=== PATIENT | male | born 1980 | race African-American/Black ===

== ENCOUNTER 2017-01-12 15:30 | Emergency (ER) | payer SELFPAY ==
[~2017-01-12] VITALS: Ht 177.8 cm; Wt 72.6 kg
[2017-01-12 16:24] VITALS: BP 132/90
[2017-01-12] MEDS ORDERED: POLY10DR EACHEYE (16:27)
--- NOTE | 2017-01-12 16:28 | PHYS DOC ---
Past Medical History Past Medical History: No Pertinent History Past Surgical History: No Surgical History Alcohol Use: Occasionally Drug Use: None Adult General Chief Complaint Chief Complaint: EYE PROBLEMS HPI HPI Patient is a 36 year old male that presents to the emergency department with left eye redness and drainage for 5 days. He was previously evaluated and given Zaditor without relief of symptoms. He has no complaints of blurred vision, double vision, loss of vision. He states his eye does not hurt but feels irritated. Review of Systems Review of Systems Constitutional: Denies fever or chills [] Eyes: Left eye redness with discharge, no eye pain HENT: Denies nasal congestion or sore throat [] Respiratory: Denies cough or shortness of breath [] Cardiovascular: No additional information not addressed in HPI [] GI: Denies abdominal pain, nausea, vomiting, bloody stools or diarrhea [] : Denies dysuria or hematuria [] Musculoskeletal: Denies back pain or joint pain [] Integument: Denies rash or skin lesions [] Neurologic: Denies headache, focal weakness or sensory changes [] Endocrine: Denies polyuria or polydipsia [] Allergies Allergies Allergies Coded Allergies Type Severity Reaction Last Updated Verified No Known Drug Allergies 12/26/13 No Physical Exam Physical Exam Constitutional: Well developed, well nourished, no acute distress, non-toxic appearance. [] Eyes: PERRLA, EOMI, left eye with ecchymosis, conjunctiva beefy red. Purulent discharge medial canthus. Funduscopic exam is benign. EOMs intact pupils equal round reactive to light [] Neck: Normal range of motion, no tenderness, supple, no stridor. [] EKG EKG [] Radiology/Procedures Radiology/Procedures [] Course & Med Decision Making Course & Med Decision Making Pertinent Labs and Imaging studies reviewed. (See chart for details) [] Dragon Disclaimer Dragon Disclaimer This electronic medical record was generated, in whole or in part, using a voice recognition dictation system. Departure Departure Impression: Primary Impression: Conjunctivitis Disposition: 01 HOME, SELF-CARE Condition: STABLE Referrals: NO PCP (PCP) Patient Instructions: Bacterial Conjunctivitis Scripts Polymyxin B Sulf/Trimethoprim (POLYTRIM EYE DROPS) 10 Ml Drops 1 DROP EACHEYE 4 hours while awake for 10 Days, #10 ML Prov: ROXANNE QUINONES APRN 01/12/17 ROXANNE QUINONES APRN Jan 12, 2017 16:27
== END 2017-01-12 16:32 | disposition home or self-care (01) ==
LOC: ER 15:30
DX: H10.9 Unspecified conjunctivitis (principal)
CPT/HCPCS: 99283

== ENCOUNTER 2017-06-19 12:55 | Inpatient (IN) | payer SELFPAY ==
[~2017-06-19] VITALS: Ht 177.8 cm; Wt 61.4 kg
[~2017-06-19 12:55] MED LIST: ACID1CAP PO; APIX5TAB PO; ASPI-482 PO; DOXY100T PO; FAMO-63 PO; FURO20TA3 PO; LACT1CAP6 PO; LEVO500T59 PO; LISI2.5T PO; METO25TA4 PO; POLY10DR EACHEYE; POTA10TA12 PO
[2017-06-19] MEDS ORDERED: ONDANSETRON PF 4 MG/2 ML VIAL. IV ONE (13:30)
[2017-06-19] MEDS ORDERED: 0.9 % SODIUM CHLORIDE 10 ML DISP.SYRIN. IV PRN (13:30)
[2017-06-19 13:33] LABS: BASO % 1 % (0-3); EOS % 2 % (0-3); HEMATOCRIT 36.8 % (39.0-53.0); HEMOGLOBIN 12.1 g/dL (13.0-17.5); LYMPH # 1.2 x10^3/uL (1.0-4.8); LYMPH % 37 % (24-48); MEAN CORPUSCULAR HEMOGLOBIN 31 pg (25-35); MEAN CORPUSCULAR HGB CONC 33 g/dL (31-37); MEAN CORPUSCULAR VOLUME 94 fL (79-100); MONO % 18 % (0-9); NEUT % 43 % (31-73); PLATELET COUNT 161 x10^3/uL (140-400); WHITE BLOOD COUNT 3.2 x10^3/uL (4.0-11.0)
--- NOTE | 2017-06-19 13:40 | PHYS DOC ---
Past Medical History Past Medical History: CHF, CVA, Pneumonia, Other Additional Past Medical Histor: CARDIAC ARYTHMIA (WEARING LIFE VEST), CARDIOMYOPATHY Past Surgical History: Other Additional Past Surgical Histo: L ARM lac repair Alcohol Use: None Drug Use: None Adult General Chief Complaint Chief Complaint: SHORTNESS OF BREATH [facility] HPI Patient is a pleasant 36-year-old -[place] male with a known history of congestive heart failure from dilated cardiomyopathy, he is suffered from stroke with prior expressive dysphasia with EF of 15% on last echocardiogram he presents today with abdominal pain that's progressively worse in the right upper quadrant with radiation to the midepigastrium. It is described as sharp and stabbing that began at noon yesterday it was not associate with trauma, food , recent nausea, vomiting or diarrhea. Patient denies any particular exacerbating symptoms other than breathing and and direct pressure over the abdomen. The pain is 8-10 without radiation to the back. He denies any UTI symptoms, history of kidney stone or blood in his urine. Patient denies any change in medications, denies any night sweats, fevers, weight loss or shortness of breath other than the fact that it hurts to breathe. Patient denies any use of [id number] medications treat his symptoms. Review of Systems Review of Systems Constitutional: Denies fever or chills [] Eyes: Denies change in visual acuity, redness, or eye pain [] HENT: Denies nasal congestion or sore throat [] Respiratory: Denies cough but he has had shortness of breath. Cardiovascular: No additional information not addressed in HPI [] GI: Patient has a complaint of abdominal pain with nausea but no vomiting no diarrhea no constipation.[] : Denies dysuria or hematuria [] Musculoskeletal: Denies back pain or joint pain [] Integument: Denies rash or skin lesions [] Neurologic: Denies headache, focal weakness or sensory changes patient chronically has difficulty speaking.[] Endocrine: Denies polyuria or polydipsia [] All other systems were reviewed and found to be within normal limits, except as documented in this note. Current Medications Current Medications Current Medications Medications (Trade) Dose Ordered Sig/Smiley Start Time Stop Time Status Last Admin Dose Admin Hydromorphone HCl (Dilaudid) 1 mg PRN Q15MIN PRN 06/19/17 13:30 06/20/17 13:29 06/19/17 13:43 1 MG Info (Do NOT chart on this entry -- for MONITORING) 1 each PRN DAILY PRN 06/19/17 14:00 06/21/17 13:59 Iohexol (Omnipaque 300 Mg/ml) 75 ml 1X ONCE 06/19/17 14:00 06/19/17 14:01 DC 06/19/17 14:00 75 ML Ondansetron HCl (Zofran) 4 mg 1X ONCE 06/19/17 13:30 06/19/17 13:31 DC 06/19/17 13:42 4 MG Sodium Chloride (Normal Saline Flush) 10 ml QSHIFT PRN 06/19/17 13:30 06/19/17 13:43 10 ML Allergies Allergies Allergies Coded Allergies Type Severity Reaction Last Updated Verified No Known Drug Allergies 05/12/17 No Physical Exam Physical Exam Patient is wearing his cardiac life best he is no acute distress vital signs are unremarkable at this time. Constitutional: Well developed, well nourished, no acute distress, non-toxic appearance. [] HENT: Normocephalic, atraumatic, bilateral external ears normal, oropharynx moist, no oral exudates, nose normal. [] Eyes: PERRLA, EOMI, conjunctiva normal, no discharge. [] Neck: Normal range of motion, no tenderness, supple, no stridor. [] Cardiovascular:Heart rate regular rhythm, no murmur [] Lungs & Thorax: Bilateral breath sounds clear to auscultation [] Abdomen: Patient is marked tenderness to palpation in the right upper quadrant with positive Bowie sign. His abdomen is soft no pulsatile masses, no guarding rebound or organomegaly. Skin: Warm, dry, no erythema, no rash. [] Back: No tenderness, no CVA tenderness. [] Extremities: No tenderness, no cyanosis, no clubbing, ROM intact, no edema. [] Neurologic: Alert and oriented X 3, normal motor function, normal sensory function, patient noted to have slight expressive aphasia[] Psychologic he is affect since blunted to me but this is normal baseline patient 's mood is normal[] Current Patient Data Vital Signs Vital Signs Date Time Temp Pulse Resp B/P (MAP) Pulse Ox O2 Delivery O2 Flow Rate FiO2 06/19/17 14:18 Room Air 06/19/17 13:05 98.0 98 22 132/81 (98) 100 98.0 Lab Values Laboratory Tests Test 06/19/17 13:20 White Blood Count 3.2 x10^3/uL (4.0-11.0) L Red Blood Count 3.90 x10^6/uL (4.30-5.70) L Hemoglobin 12.1 g/dL (13.0-17.5) L Hematocrit 36.8 % (39.0-53.0) L Mean Corpuscular Volume 94 fL (79-100) Mean Corpuscular Hemoglobin 31 pg (25-35) Mean Corpuscular Hemoglobin Concent 33 g/dL (31-37) Red Cell Distribution Width 14.0 % (11.5-14.5) Platelet Count 161 x10^3/uL (140-400) Neutrophils (%) (Auto) 43 % (31-73) Lymphocytes (%) (Auto) 37 % (24-48) Monocytes (%) (Auto) 18 % (0-9) H Eosinophils (%) (Auto) 2 % (0-3) Basophils (%) (Auto) 1 % (0-3) Neutrophils # (Auto) 1.4 x10^3uL (1.8-7.7) L Lymphocytes # (Auto) 1.2 x10^3/uL (1.0-4.8) Monocytes # (Auto) 0.6 x10^3/uL (0.0-1.1) Eosinophils # (Auto) 0.1 x10^3/uL (0.0-0.7) Basophils # (Auto) 0.0 x10^3/uL (0.0-0.2) Platelet Estimate Adequate (ADEQUATE) Large Platelets Few Giant Platelets Occ Sodium Level 138 mmol/L (136-145) Potassium Level 4.5 mmol/L (3.5-5.1) Chloride Level 101 mmol/L (98-107) Carbon Dioxide Level 24 mmol/L (21-32) Anion Gap 13 (6-14) Blood Urea Nitrogen 22 mg/dL (8-26) Creatinine 1.2 mg/dL (0.7-1.3) Estimated GFR (Cockcroft-Gault) 82.0 BUN/Creatinine Ratio 18 (6-20) Glucose Level 102 mg/dL (70-99) H Calcium Level 9.1 mg/dL (8.5-10.1) Total Bilirubin 1.5 mg/dL (0.2-1.0) H Aspartate Amino Transferase (AST) 78 U/L (15-37) H Alanine Aminotransferase (ALT) 50 U/L (16-63) Alkaline Phosphatase 139 U/L (46-116) H Creatine Kinase 139 U/L (39-308) Creatine Kinase MB (Mass) 1.7 ng/mL (0.0-3.6) Creatine Kinase MB Relative Index 1.2 % (0-4) Troponin I Quantitative 0.027 ng/mL (0.000-0.055) XN-Ira-U-Type Natriuretic Peptide 4393 pg/mL (0-124) H Total Protein 7.4 g/dL (6.4-8.2) Albumin 3.5 g/dL (3.4-5.0) Albumin/Globulin Ratio 0.9 (1.0-1.7) L Lipase 114 U/L (73-393) Laboratory Tests 06/19/17 13:20 Laboratory Tests 06/19/17 13:20 EKG EKG []Impression to EKG timed 1:36 PM 06/19/2017 read by me demonstrated P with every QRS(normal sinus rhythm there is significant PVCs noted there is a large left atrial enlargement lead to the P wave greater than 2 mV. Patient's. Ovral 158, QRS width is 88 which is normal, QTc is 489 which is prolonged.. There is no ST segment T-wave changes consistent with acute cord ischemia. Radiology/Procedures Radiology/Procedures [] Course & Med Decision Making Course & Med Decision Making Pertinent Labs and Imaging studies reviewed. (See chart for details) []Patient is a pleasant 36-year-old male with a history of recurrent myopathy and congestive heart for with a prior stroke and expressive aphasia who presents with shortness of breath and right upper quadrant abdominal pain. He just recent seen and admitted the hospital for congestive heart failure with the last several weeks. Patient denies any chest pain denies intention medications but the pain is worse the right upper quadrant with breathing and position. He has marked tenderness to palpation on right upper quadrant abdominal pain exam and in the epigastric region. 2:00 Work returned at this time approximate 2 PM patient's white blood cell count is normal, a CBC is unremarkable as well as a normal H&H. Platelet count is also normal at 161, trop I is normal, pending CT ab/pelvis and probnp. Chest xray is without signs of CHF or infiltrate Laboratory Tests Test 06/19/17 13:20 White Blood Count 3.2 x10^3/uL (4.0-11.0) Red Blood Count 3.90 x10^6/uL (4.30-5.70) Hemoglobin 12.1 g/dL (13.0-17.5) Hematocrit 36.8 % (39.0-53.0) Mean Corpuscular Volume 94 fL (79-100) Mean Corpuscular Hemoglobin 31 pg (25-35) Mean Corpuscular Hemoglobin Concent 33 g/dL (31-37) Red Cell Distribution Width 14.0 % (11.5-14.5) Platelet Count 161 x10^3/uL (140-400) Neutrophils (%) (Auto) 43 % (31-73) Lymphocytes (%) (Auto) 37 % (24-48) Monocytes (%) (Auto) 18 % (0-9) Eosinophils (%) (Auto) 2 % (0-3) Basophils (%) (Auto) 1 % (0-3) Neutrophils # (Auto) 1.4 x10^3uL (1.8-7.7) Lymphocytes # (Auto) 1.2 x10^3/uL (1.0-4.8) Monocytes # (Auto) 0.6 x10^3/uL (0.0-1.1) Eosinophils # (Auto) 0.1 x10^3/uL (0.0-0.7) Basophils # (Auto) 0.0 x10^3/uL (0.0-0.2) Platelet Estimate Adequate (ADEQUATE) Large Platelets Few Giant Platelets Occ Sodium Level 138 mmol/L (136-145) Chloride Level 101 mmol/L (98-107) Carbon Dioxide Level 24 mmol/L (21-32) Anion Gap 13 (6-14) Blood Urea Nitrogen 22 mg/dL (8-26) Estimated GFR (Cockcroft-Gault) 82.0 BUN/Creatinine Ratio 18 (6-20) Glucose Level 102 mg/dL (70-99) Calcium Level 9.1 mg/dL (8.5-10.1) Total Bilirubin 1.5 mg/dL (0.2-1.0) Aspartate Amino Transf (AST/SGOT) 78 U/L (15-37) Alkaline Phosphatase 139 U/L (46-116) Creatine Kinase 139 U/L (39-308) Creatine Kinase MB (Mass) 1.7 ng/mL (0.0-3.6) Creatine Kinase MB Relative Index 1.2 % (0-4) Troponin I Quantitative 0.027 ng/mL (0.000-0.055) Total Protein 7.4 g/dL (6.4-8.2) Albumin 3.5 g/dL (3.4-5.0) Albumin/Globulin Ratio 0.9 (1.0-1.7) Lipase 114 U/L (73-393) Marroquin over to oncoming physician Dr. Cheri Marroquin at approximately 3 PM. Dragon Disclaimer Dragon Disclaimer This electronic medical record was generated, in whole or in part, using a voice recognition dictation system. Departure Departure Impression: Primary Impression: CHF (congestive heart failure) Additional Impression: Abdominal pain Referrals: NO PCP (PCP) Problem Qualifiers WING HA MD Jun 19, 2017 13:40
[2017-06-19] MEDS: HYDROmorphone 2 MG/ML VIAL IV/SQ PRN ×2 (13:43→14:52)
[2017-06-19 13:46] LABS: CALCIUM 9.1 mg/dL (8.5-10.1); CREATININE 1.2 mg/dL (0.7-1.3); POTASSIUM 4.5 mmol/L (3.5-5.1)
[2017-06-19 13:54] LABS: ALBUMIN 3.5 g/dL (3.4-5.0); ALBUMIN/GLOBULIN RATIO 0.9 (1.0-1.7); TOTAL BILIRUBIN 1.5 mg/dL (0.2-1.0); TOTAL PROTEIN 7.4 g/dL (6.4-8.2)
[2017-06-19] MEDS ORDERED: CONTRAST GIVEN MC PRN (14:00)
[2017-06-19] MEDS ORDERED: IOHEXOL 300 MG/ML 100ML VIAL. IV ONE (14:00)
--- NOTE | 2017-06-19 14:13 | RAD ---
AP chest, 06/19/2017: History: Shortness of breath Comparison is made to a study from 06/15/2017. The heart is enlarged. Previously seen patchy pulmonary infiltrates have cleared. The pulmonary vascularity is better defined. There is slight blunting of the left lateral costophrenic angle compatible with a small amount of residual pleural fluid versus scarring. No new abnormality is seen. IMPRESSION: 1. Cardiomegaly. 2. Resolution of the previously seen bilateral pulmonary infiltrates which probably represented pulmonary edema. 3. Possible tiny residual left pleural effusion.
[2017-06-19 14:25] LABS: CKMB MASS 1.7 ng/mL (0.0-3.6); PLT ESTIMATE ADEQUATE (ADEQUATE)
--- NOTE | 2017-06-19 14:54 | EKG ---
[facility] [address] [place] [address] Test Date: 2017-06-19 Test Time: 13:36:27 Pat Name: JOSE ELIAS POOLE Department: Room: Gender: M Head Chef: : [id number] Requested By: WING HA Order Number: [id number] Reading MD: David Lyles MD Measurements Intervals [place] Rate: 90 P: 49 NV: 158 QRS: 67 QRSD: 88 T: 39 QT: 396 QTc: 489 Interpretive Statements SINUS RHYTHM LVH PVC Electronically Signed On 06-24-2017 14:41:00 BUSINESS PROCESS MODELER by David Lyles MD
--- NOTE | 2017-06-19 15:05 | RAD ---
Indication: Right upper quadrant and epigastric pain. Technique: Axial images and coronal and sagittal reformatted images are provided. 75 mL of intravenous Omnipaque 300 was administered without complication. Comparison is from May 06, 2017. One or more of the following individualized dose reduction techniques were utilized for this examination: 1. Automated exposure control 2. Adjustment of the mA and/or kV according to patient size 3. Use of iterative reconstruction technique Findings: There is atelectasis in the lung bases. There is no pleural effusion. Heart is upper limits of normal in size. Liver is grossly unremarkable. There is pericholecystic fluid or wall thickening. Pancreas is unremarkable. Contrast timing is arterial phase, heterogeneity of the spleen can be a normal finding on arterial imaging. There is no adrenal mass. There are areas of renal infarct bilaterally, similar distribution to is on prior. They demonstrate expected evolution. Aorta is normal caliber. There is no small bowel obstruction or mural thickening apparent. There is no ascites or free air. Free pelvic fluid is noted and nonspecific. Bladder is unremarkable. There is no pelvic adenopathy. Bony structures are intact. There are L5 pars defects with slight anterolisthesis. Impression: 1. Nonspecific gallbladder wall thickening or pericholecystic fluid. If further workup is required, consider ultrasound and hepatobiliary scintigraphy with ejection fraction. 2. Expected evolution of bilateral renal infarcts. 3. Small small amount of nonspecific pelvic ascites. 4. Borderline cardiomegaly.
[2017-06-19 15:56] LABS: BILIRUBIN,URINE NEGATIVE (NEG); GLUCOSE,URINE NEGATIVE (NEG); NITRITE,URINE NEGATIVE (NEG); PH,URINE 5.5; PROTEIN,URINE NEGATIVE (NEG-TRACE); UROBILINOGEN,URINE 0.2 mg/dL (0.2 mg/dL)
[2017-06-19 16:22] LABS: BACTERIA,URINE 0 /HPF (0-FEW); RBC,URINE 0 /HPF (0-2); SQUAMOUS EPITHELIAL CELL,UR OCC /LPF; WBC,URINE 0 /HPF (0-4)
--- NOTE | 2017-06-19 19:14 | RAD ---
Examination: Ultrasound right upper quadrant HISTORY: History of upper abdominal pain COMPARISON: None available FINDINGS: The visualized pancreas grossly appears unremarkable. The echogenicity of the liver grossly appears unremarkable. No evidence of gallstones. The gallbladder wall thickness measures 3.5 mm. Minimal amount of free fluid identified adjacent to the gallbladder. No obvious cholelithiasis identified. The right kidney measures 10.8 x 5.2 x 4.5 cm. Probably lobulation identified in the right kidney. IMPRESSION: No evidence of cholelithiasis however the gallbladder wall thickness is mildly thickened with minimal surrounding fluid about the gallbladder, nonspecific. Acalculous cholecystitis is not completely excluded. Correlate clinically. A follow-up HIDA scan may be useful. Electronically signed by: Narayan Black MD (06/19/2017 7:11 PM) [facility]
[2017-06-19] MEDS ORDERED: ONDANSETRON PF 4 MG/2 ML VIAL. IV PRN (19:45)
[2017-06-19] MEDS ORDERED: fentaNYL PF VIAL 100 MCG/2 ML VIAL IV PRN (19:45)
[2017-06-19 20:55] VITALS: BP 135/94
[2017-06-19] MEDS ORDERED: METO-239 PO (21:33)
[2017-06-19] MEDS ORDERED: ASPI-630 PO (21:37)
[2017-06-19] MEDS ORDERED: HYDROcodone/APAP 5/325MG 1 TAB TABLET PO PRN (22:30)
[2017-06-19 23:23] VITALS: BP 112/80
--- NOTE | 2017-06-19 23:24 | HP ---
ADMIT DATE: 06/19/2017 CHIEF COMPLAINT: Abdominal pain, shortness of breath. HISTORY OF PRESENT ILLNESS: The patient is a 36-year-old -[place] gentleman, well known to our service with previous admissions for dilated cardiomyopathy and stroke. He presented to the Emergency Room with mid epigastric pain as well as some shortness of breath associated with pain episodes. He describes the pain as sharp, stabbing, beginning at about noon the previous day. Although centered subxiphoid, it radiates to his right upper quadrant as well. He has shortness of breath associated with the episodes of pain. He relates that today's episode started at about 02:00 in the morning and he has had it happening in the fountain pen turner hours fairly frequently over the past few weeks, although never as severe as this morning. He denies any night sweats, fevers, chills, weight loss or any changes in his medications. PAST MEDICAL HISTORY: CAD; CHF with an EF of 20, wearing a LifeVest; history of CVA and pneumonia. FAMILY HISTORY: No heart history known. SOCIAL HISTORY: Lives with mother. Quit drinking excess alcohol with his initial diagnosis. No tobacco or drug use. ALLERGIES: No known drug allergies. MEDICATIONS: MAR reconciled with home medications. REVIEW OF SYSTEMS: Positive as per HPI. Rest of organ system review is answered negatively. PHYSICAL EXAMINATION: VITAL SIGNS: Show blood pressure of 135/94, heart rate of 108 and respiratory rate at 18. He is afebrile. GENERAL: This is a slim 36-year-old -[place] gentleman, awake, alert, in no acute distress. HEENT: Shows no scleral icterus. NECK: Supple, without any lymphadenopathy. LUNGS: Clear bilaterally. HEART: Has regular rate and rhythm. ABDOMEN: Positive bowel sounds. Tenderness to palpation along the rib margin and epigastrium. EXTREMITIES: Show no edema. SKIN: Warm, soft and dry. LABORATORY DATA: CBC with a WBC of 3.2, hemoglobin of 12.1 and platelets of 161,000. Chemistries with a BUN and creatinine of 22 and 1.2, normal electrolytes, glucose at 102. AST at 78, and he had been fluctuating anywhere from 33-120 in the past few months. Total bilirubin at 1.5, once again fluctuation from 0.7 to 2. Initial troponin is negative, although had been slightly elevated just 4 days ago. ProBNP at 4393. Urine was negative for any infectious symptoms, shows a specific gravity of greater than 1.030. IMAGING STUDIES: Chest x-ray reveals cardiomegaly and resolution of the previously seen bilateral pulmonary infiltrates, consistent with pulmonary edema. Other studies showed an ultrasound of the right kidney, which is normal. No evidence of gallstones. There is gallbladder wall thickness with minimal amount of free fluid adjacent to the gallbladder. ASSESSMENT AND PLAN: The patient is a 36-year-old -[place] gentleman with severe cardiomyopathy and ejection fraction of 15, who presents with nausea and abdominal pain. Ultrasound of the abdomen is read as no evidence of cholelithiasis; however, acalculous cholecystitis is not completely excluded. Given findings, HIDA scan will be obtained in the morning. Even if positive, given the severe cardiomyopathy, I doubt that he is a surgical candidate. We will await findings of the study. In the meantime, we will keep him on clear liquids. Continue home medications for now. KULWANT ARCE MD DR: MAGNO/nts JOB#: [id number] / [id number] ELE
[2017-06-20] MEDS: FAMOTIDINE 20 MG/2 ML VIAL IVP SCH ×3 (00:07→15:59)
[2017-06-20 03:00] VITALS: BP 112/77
[2017-06-20 05:34] LABS: BASO % 1 % (0-3); EOS % 4 % (0-3); HEMATOCRIT 36.4 % (39.0-53.0); HEMOGLOBIN 11.8 g/dL (13.0-17.5); LYMPH # 1.4 x10^3/uL (1.0-4.8); LYMPH % 40 % (24-48); MEAN CORPUSCULAR HEMOGLOBIN 31 pg (25-35); MEAN CORPUSCULAR HGB CONC 33 g/dL (31-37); MEAN CORPUSCULAR VOLUME 94 fL (79-100); MONO % 15 % (0-9); NEUT % 40 % (31-73); PLATELET COUNT 150 x10^3/uL (140-400); RED BLOOD COUNT 3.86 x10^6/uL (4.30-5.70); RED CELL DISTRIBUTION WIDTH 14.1 % (11.5-14.5); WHITE BLOOD COUNT 3.4 x10^3/uL (4.0-11.0)
[2017-06-20 06:08] LABS: CALCIUM 9.5 mg/dL (8.5-10.1); CREATININE 1.1 mg/dL (0.7-1.3); GFR 90.6; POTASSIUM 4.1 mmol/L (3.5-5.1)
[2017-06-20 06:11] LABS: ALBUMIN 3.2 g/dL (3.4-5.0); DIRECT BILIRUBIN 0.3 mg/dL (0.0-0.2); TOTAL BILIRUBIN 1.5 mg/dL (0.2-1.0); TOTAL PROTEIN 6.7 g/dL (6.4-8.2)
[2017-06-20 07:00] VITALS: BP 115/85
[2017-06-20] MEDS ORDERED: APIXABAN 5 MG TABLET. PO SCH (09:00)
[2017-06-20] MEDS: METOPROLOL SUCC 24HR ER 25 MG TAB.ER.24H. PO SCH ×2 (09:00→15:59)
[2017-06-20] MEDS ORDERED: FUROSEMIDE 20 MG TABLET PO SCH (09:00)
[2017-06-20] MEDS: ASPIRIN CHEWABLE 81 MG TABLET. PO SCH ×2 (09:00→15:57)
--- NOTE | 2017-06-20 10:58 | PDOC2 ---
ARNOLD OLIVIER FLAT CUTTER 06/20/17 1058: CONSULT Date of Consult Date of Consult DATE: 06/20/17 TIME: 10:50 Reason for Consult Reason for Consult: RUQ pain Referring Physician Referring Physician: ER Identification/Chief Complaint Chief Complaint abdominal pain Problems: Source Source: Chart review, Patient History of Present Illness Reason for Visit: Acute epigastric pain started yesterday. He has had similar symptoms in past. Denies related to eating. No nausea, vomiting, constipation, or diarrhea Significant cardiac history Past Medical History Cardiovascular: CHF, HTN Pulmonary: Pneumonia GI: GERD Past Surgical History Past Surgical History: No pertinent history Family History Family History: Other (noncontributory to current illness ) Social History Quit (2 months ago) ALCOHOL: other (frequent not daily however, few beers) Drugs: None Lives: Alone Current Problem List Problem List Problems Medical Problems: (1) Abdominal pain Status: Acute Current Medications Current Medications Current Medications Hydromorphone HCl (Dilaudid) 1 mg PRN Q15MIN PRN IV/SQ PAIN GREATER THAN 3/10 Last administered on 06/19/17 14:52; Start 06/19/17 at 13:30; Stop 06/19/17 at 22:30; Status DC Sodium Chloride (Normal Saline Flush) 10 ml QSHIFT PRN IV AFTER MEDS AND BLOOD DRAWS Last administered on 06/19/17 13:43; Start 06/19/17 at 13:30 Ondansetron HCl (Zofran) 4 mg 1X ONCE IV Last administered on 06/19/17 13:42 ; Start 06/19/17 at 13:30; Stop 06/19/17 at 13:31; Status DC Iohexol (Omnipaque 300 Mg/ml) 75 ml 1X ONCE IV Last administered on 14:00; Start 06/19/17 at 14:00; Stop 06/19/17 at 14:01; Status DC Info (Do NOT chart on this entry -- for MONITORING) 1 each PRN DAILY PRN MC SEE COMMENTS; Start 06/19/17 at 14:00; Stop 06/21/17 at 13:59 Ondansetron HCl (Zofran) 4 mg PRN Q8HRS PRN IV NAUSEA/VOMITING; Start at 19:45; Stop 06/20/17 at 19:44 Fentanyl Citrate (Fentanyl 2ml Vial) 50 mcg PRN Q1HR PRN IV PAIN; Start at 19:45; Stop 06/19/17 at 22:30; Status DC Apixaban (Eliquis) 5 mg BID PO ; Start 06/20/17 at 09:00 Aspirin (Children'S Aspirin) 81 mg DAILY PO ; Start 06/20/17 at 09:00 Furosemide (Lasix) 20 mg DAILY PO ; Start 06/20/17 at 09:00 Metoprolol Succinate (Toprol Xl) 25 mg DAILY PO ; Start 06/20/17 at 09:00 Acetaminophen/ Hydrocodone Bitart (Lortab 5/325) 1 tab PRN Q4HRS PRN PO PAIN; Start 06/19/17 at 22:30 Famotidine (Pepcid Vial) 20 mg BID92 IVP Last administered on 06/20/17t 09:09 ; Start 06/19/17 at 22:30 Active Scripts Active Furosemide 20 Mg Tablet 20 Mg PO DAILY 30 Days Polytrim Eye Drops (Polymyxin B Sulf/Trimethoprim) 10 Ml Drops 1 Drop EACHEYE 4 HOURS WHILE AWAKE 10 Days Reported Aspirin 81 Mg Tab.chew 81 Mg PO Metoprolol Succinate ( Xl ) (Metoprolol Succinate) 25 Mg Tab.er.24h 1 Tab PO DAILY Eliquis (Apixaban) 5 Mg Tablet 5 Mg PO BID Allergies Allergies: Coded Allergies: No Known Drug Allergies (Unverified , 05/12/17) ROS General: YES: Chills, No: Other (fevers) PSYCHOLOGICAL ROS: No: Anxiety, Depression Eyes: No Blurry vision, No Loss of vision HEENT: No: Heacaches, Sore Throat Hematological and Lymphatic: YES: Bleeding Problems, No: Blood Clots Respiratory: YES: Shortness of breath, No: Cough Cardiovascular: No Chest Pain, No Palpitations Gastrointestinal: Yes Other (see hpi) Genitourinary: No Dysuria, No Hematuria Musculoskeletal: No Joint Pain, No Muscle Pain Neurological: No Impaired Coord/balance, No Numbness/Tingling Skin: No Pruritus, No Rash Physical Exam General: Alert, Oriented X3, Cooperative, No acute distress HEENT: PERRLA, Mucous membr. moist/pink Lungs: Clear to auscultation, Normal air movement Heart: Regular rate, Normal S1, Normal S2, No murmurs Abdomen: Soft, Other (epigastric TTP) Extremities: No clubbing, No cyanosis Skin: No rashes, No breakdown Neuro: Normal gait, Normal speech Psych/Mental Status: Mental status NL, Mood NL MUSCULOSKELETAL: No deformity, No swelling Vitals VITALS Vital Signs Date Time Temp Pulse Resp B/P (MAP) Pulse Ox O2 Delivery O2 Flow Rate FiO2 06/20/17 07:00 97.8 94 18 115/85 (95) 94 Room Air 97.8 Labs Labs Laboratory Tests Test 06/19/17 13:20 06/19/17 15:40 06/20/17 05:15 White Blood Count 3.2 x10^3/uL (4.0-11.0) 3.4 x10^3/uL (4.0-11.0) Red Blood Count 3.90 x10^6/uL (4.30-5.70) 3.86 x10^6/uL (4.30-5.70) Hemoglobin 12.1 g/dL (13.0-17.5) 11.8 g/dL (13.0-17.5) Hematocrit 36.8 % (39.0-53.0) 36.4 % (39.0-53.0) Mean Corpuscular Volume 94 fL (79-100) 94 fL (79-100) Mean Corpuscular Hemoglobin 31 pg (25-35) 31 pg (25-35) Mean Corpuscular Hemoglobin Concent 33 g/dL (31-37) 33 g/dL (31-37) Red Cell Distribution Width 14.0 % (11.5-14.5) 14.1 % (11.5-14.5) Platelet Count 161 x10^3/uL (140-400) 150 x10^3/uL (140-400) Neutrophils (%) (Auto) 43 % (31-73) 40 % (31-73) Lymphocytes (%) (Auto) 37 % (24-48) 40 % (24-48) Monocytes (%) (Auto) 18 % (0-9) 15 % (0-9) Eosinophils (%) (Auto) 2 % (0-3) 4 % (0-3) Basophils (%) (Auto) 1 % (0-3) 1 % (0-3) Neutrophils # (Auto) 1.4 x10^3uL (1.8-7.7) 1.4 x10^3uL (1.8-7.7) Lymphocytes # (Auto) 1.2 x10^3/uL (1.0-4.8) 1.4 x10^3/uL (1.0-4.8) Monocytes # (Auto) 0.6 x10^3/uL (0.0-1.1) 0.5 x10^3/uL (0.0-1.1) Eosinophils # (Auto) 0.1 x10^3/uL (0.0-0.7) 0.1 x10^3/uL (0.0-0.7) Basophils # (Auto) 0.0 x10^3/uL (0.0-0.2) 0.0 x10^3/uL (0.0-0.2) Platelet Estimate Adequate (ADEQUATE) Large Platelets Few Giant Platelets Occ Sodium Level 138 mmol/L (136-145) 138 mmol/L (136-145) Potassium Level 4.5 mmol/L (3.5-5.1) 4.1 mmol/L (3.5-5.1) Chloride Level 101 mmol/L (98-107) 102 mmol/L (98-107) Carbon Dioxide Level 24 mmol/L (21-32) 27 mmol/L (21-32) Anion Gap 13 (6-14) 9 (6-14) Blood Urea Nitrogen 22 mg/dL (8-26) 18 mg/dL (8-26) Creatinine 1.2 mg/dL (0.7-1.3) 1.1 mg/dL (0.7-1.3) Estimated GFR (Cockcroft-Gault) 82.0 90.6 BUN/Creatinine Ratio 18 (6-20) Glucose Level 102 mg/dL (70-99) 89 mg/dL (70-99) Calcium Level 9.1 mg/dL (8.5-10.1) 9.5 mg/dL (8.5-10.1) Total Bilirubin 1.5 mg/dL (0.2-1.0) 1.5 mg/dL (0.2-1.0) Aspartate Amino Transf (AST/SGOT) 78 U/L (15-37) 35 U/L (15-37) Alanine Aminotransferase (ALT/SGPT) 50 U/L (16-63) 38 U/L (16-63) Alkaline Phosphatase 139 U/L (46-116) 120 U/L (46-116) Creatine Kinase 139 U/L (39-308) Creatine Kinase MB (Mass) 1.7 ng/mL (0.0-3.6) Creatine Kinase MB Relative Index 1.2 % (0-4) Troponin I Quantitative 0.027 ng/mL (0.000-0.055) TX-Pyy-T-Type Natriuretic Peptide 4393 pg/mL (0-124) Total Protein 7.4 g/dL (6.4-8.2) 6.7 g/dL (6.4-8.2) Albumin 3.5 g/dL (3.4-5.0) 3.2 g/dL (3.4-5.0) Albumin/Globulin Ratio 0.9 (1.0-1.7) Lipase 114 U/L (73-393) Urine Color Yellow Urine Clarity Clear Urine pH 5.5 Urine Specific [place] >=1.030 Urine Protein Negative mg/dL (NEG-TRACE) Urine Glucose (UA) Negative mg/dL (NEG) Urine Ketones (Stick) Negative mg/dL (NEG) Urine Blood Negative (NEG) Urine Nitrite Negative (NEG) Urine Bilirubin Negative (NEG) Urine Urobilinogen Dipstick 0.2 mg/dL (0.2 mg/dL) Urine Leukocyte Esterase Negative (NEG) Urine RBC 0 /HPF (0-2) Urine WBC 0 /HPF (0-4) Urine Squamous Epithelial Cells Occ /LPF Urine Bacteria 0 /HPF (0-FEW) Direct Bilirubin 0.3 mg/dL (0.0-0.2) Laboratory Tests Test 06/19/17 13:20 06/19/17 15:40 06/20/17 05:15 White Blood Count 3.2 x10^3/uL (4.0-11.0) 3.4 x10^3/uL (4.0-11.0) Red Blood Count 3.90 x10^6/uL (4.30-5.70) 3.86 x10^6/uL (4.30-5.70) Hemoglobin 12.1 g/dL (13.0-17.5) 11.8 g/dL (13.0-17.5) Hematocrit 36.8 % (39.0-53.0) 36.4 % (39.0-53.0) Mean Corpuscular Volume 94 fL (79-100) 94 fL (79-100) Mean Corpuscular Hemoglobin 31 pg (25-35) 31 pg (25-35) Mean Corpuscular Hemoglobin Concent 33 g/dL (31-37) 33 g/dL (31-37) Red Cell Distribution Width 14.0 % (11.5-14.5) 14.1 % (11.5-14.5) Platelet Count 161 x10^3/uL (140-400) 150 x10^3/uL (140-400) Neutrophils (%) (Auto) 43 % (31-73) 40 % (31-73) Lymphocytes (%) (Auto) 37 % (24-48) 40 % (24-48) Monocytes (%) (Auto) 18 % (0-9) 15 % (0-9) Eosinophils (%) (Auto) 2 % (0-3) 4 % (0-3) Basophils (%) (Auto) 1 % (0-3) 1 % (0-3) Neutrophils # (Auto) 1.4 x10^3uL (1.8-7.7) 1.4 x10^3uL (1.8-7.7) Lymphocytes # (Auto) 1.2 x10^3/uL (1.0-4.8) 1.4 x10^3/uL (1.0-4.8) Monocytes # (Auto) 0.6 x10^3/uL (0.0-1.1) 0.5 x10^3/uL (0.0-1.1) Eosinophils # (Auto) 0.1 x10^3/uL (0.0-0.7) 0.1 x10^3/uL (0.0-0.7) Basophils # (Auto) 0.0 x10^3/uL (0.0-0.2) 0.0 x10^3/uL (0.0-0.2) Platelet Estimate Adequate (ADEQUATE) Large Platelets Few Giant Platelets Occ Sodium Level 138 mmol/L (136-145) 138 mmol/L (136-145) Potassium Level 4.5 mmol/L (3.5-5.1) 4.1 mmol/L (3.5-5.1) Chloride Level 101 mmol/L (98-107) 102 mmol/L (98-107) Carbon Dioxide Level 24 mmol/L (21-32) 27 mmol/L (21-32) Anion Gap 13 (6-14) 9 (6-14) Blood Urea Nitrogen 22 mg/dL (8-26) 18 mg/dL (8-26) Creatinine 1.2 mg/dL (0.7-1.3) 1.1 mg/dL (0.7-1.3) Estimated GFR (Cockcroft-Gault) 82.0 90.6 BUN/Creatinine Ratio 18 (6-20) Glucose Level 102 mg/dL (70-99) 89 mg/dL (70-99) Calcium Level 9.1 mg/dL (8.5-10.1) 9.5 mg/dL (8.5-10.1) Total Bilirubin 1.5 mg/dL (0.2-1.0) 1.5 mg/dL (0.2-1.0) Aspartate Amino Transf (AST/SGOT) 78 U/L (15-37) 35 U/L (15-37) Alanine Aminotransferase (ALT/SGPT) 50 U/L (16-63) 38 U/L (16-63) Alkaline Phosphatase 139 U/L (46-116) 120 U/L (46-116) Creatine Kinase 139 U/L (39-308) Creatine Kinase MB (Mass) 1.7 ng/mL (0.0-3.6) Creatine Kinase MB Relative Index 1.2 % (0-4) Troponin I Quantitative 0.027 ng/mL (0.000-0.055) VH-Jhr-R-Type Natriuretic Peptide 4393 pg/mL (0-124) Total Protein 7.4 g/dL (6.4-8.2) 6.7 g/dL (6.4-8.2) Albumin 3.5 g/dL (3.4-5.0) 3.2 g/dL (3.4-5.0) Albumin/Globulin Ratio 0.9 (1.0-1.7) Lipase 114 U/L (73-393) Urine Color Yellow Urine Clarity Clear Urine pH 5.5 Urine Specific [place] >=1.030 Urine Protein Negative mg/dL (NEG-TRACE) Urine Glucose (UA) Negative mg/dL (NEG) Urine Ketones (Stick) Negative mg/dL (NEG) Urine Blood Negative (NEG) Urine Nitrite Negative (NEG) Urine Bilirubin Negative (NEG) Urine Urobilinogen Dipstick 0.2 mg/dL (0.2 mg/dL) Urine Leukocyte Esterase Negative (NEG) Urine RBC 0 /HPF (0-2) Urine WBC 0 /HPF (0-4) Urine Squamous Epithelial Cells Occ /LPF Urine Bacteria 0 /HPF (0-FEW) Direct Bilirubin 0.3 mg/dL (0.0-0.2) Assessment/Plan Assessment/Plan abdominal pain, US/CT findings of pericholecystic fluid, gb wall thickening, no stones cardiomyopathy, EF 20%, history of stroke, on eliquis, CHF HIDA today hold eliquis pending HIDA, if found to have acute cholecystitis--will need eliquis held for potential surgery XOCHITL NUGENT MD 06/20/17 1806: CONSULT Allergies Allergies: Coded Allergies: No Known Drug Allergies (Unverified , 05/12/17) Assessment/Plan Assessment/Plan Pt seen and examined. Agree with Ms. Olivier's note Pt reports pain is improved, jane PO abd soft, min TTP suspect biliary source for pain and biliary dyskinesia (EF 93 % by HIDA), but pt is prohibitive surgical candidate recommend low fat diet and EtOH cessation Thanks for consult! ARNOLD OLIVIER APRN Jun 20, 2017 10:58 XOCHITL NUGENT MD Jun 20, 2017 18:06
[2017-06-20 11:00] VITALS: BP 114/85
[2017-06-20] MEDS ORDERED: SINCALIDE 1.3 MCG in IV NORMAL SALINE 50ML 30 ML IV ONE (13:45)
[2017-06-20 15:00] VITALS: BP 112/81
--- NOTE | 2017-06-20 15:11 | PDOC ---
CARDIO Progress Notes Date and Time Date of Service 06/20/2017 Time of Evaluation 1500 Subjective Subjective: No Chest Pain, No shortness of breath, No Palpitations, No Dizziness Vitals Vitals Vital Signs Date Time Temp Pulse Resp B/P (MAP) Pulse Ox O2 Delivery O2 Flow Rate FiO2 06/20/17 11:00 98.5 83 18 114/85 (95) 96 Room Air 98.5 Weight Weight [ ] Input and Output Intake and Output Intake and Output 06/20/17 07:00 Intake Total 0 ml Output Total 25 ml Balance -25 ml Intake Oral 0 ml Output Urine Total 25 ml # Voids 2 Laboratory Labs Laboratory Tests Test 06/19/17 15:40 06/20/17 05:15 Urine Color Yellow Urine Clarity Clear Urine pH 5.5 Urine Specific [place] >=1.030 Urine Protein Negative mg/dL (NEG-TRACE) Urine Glucose (UA) Negative mg/dL (NEG) Urine Ketones (Stick) Negative mg/dL (NEG) Urine Blood Negative (NEG) Urine Nitrite Negative (NEG) Urine Bilirubin Negative (NEG) Urine Urobilinogen Dipstick 0.2 mg/dL (0.2 mg/dL) Urine Leukocyte Esterase Negative (NEG) Urine RBC 0 /HPF (0-2) Urine WBC 0 /HPF (0-4) Urine Squamous Epithelial Cells Occ /LPF Urine Bacteria 0 /HPF (0-FEW) White Blood Count 3.4 x10^3/uL (4.0-11.0) Red Blood Count 3.86 x10^6/uL (4.30-5.70) Hemoglobin 11.8 g/dL (13.0-17.5) Hematocrit 36.4 % (39.0-53.0) Mean Corpuscular Volume 94 fL (79-100) Mean Corpuscular Hemoglobin 31 pg (25-35) Mean Corpuscular Hemoglobin Concent 33 g/dL (31-37) Red Cell Distribution Width 14.1 % (11.5-14.5) Platelet Count 150 x10^3/uL (140-400) Neutrophils (%) (Auto) 40 % (31-73) Lymphocytes (%) (Auto) 40 % (24-48) Monocytes (%) (Auto) 15 % (0-9) Eosinophils (%) (Auto) 4 % (0-3) Basophils (%) (Auto) 1 % (0-3) Neutrophils # (Auto) 1.4 x10^3uL (1.8-7.7) Lymphocytes # (Auto) 1.4 x10^3/uL (1.0-4.8) Monocytes # (Auto) 0.5 x10^3/uL (0.0-1.1) Eosinophils # (Auto) 0.1 x10^3/uL (0.0-0.7) Basophils # (Auto) 0.0 x10^3/uL (0.0-0.2) Sodium Level 138 mmol/L (136-145) Potassium Level 4.1 mmol/L (3.5-5.1) Chloride Level 102 mmol/L (98-107) Carbon Dioxide Level 27 mmol/L (21-32) Anion Gap 9 (6-14) Blood Urea Nitrogen 18 mg/dL (8-26) Creatinine 1.1 mg/dL (0.7-1.3) Estimated GFR (Cockcroft-Gault) 90.6 Glucose Level 89 mg/dL (70-99) Calcium Level 9.5 mg/dL (8.5-10.1) Total Bilirubin 1.5 mg/dL (0.2-1.0) Direct Bilirubin 0.3 mg/dL (0.0-0.2) Aspartate Amino Transf (AST/SGOT) 35 U/L (15-37) Alanine Aminotransferase (ALT/SGPT) 38 U/L (16-63) Alkaline Phosphatase 120 U/L (46-116) Total Protein 6.7 g/dL (6.4-8.2) Albumin 3.2 g/dL (3.4-5.0) Physical Exam HEENT: Neck Supple W Full Motion Chest: Symmetric LUNGS: Other (faint basilar crackles) Heart: S1S2, RRR (SR) Abdomen: Soft N/T Extremities: No Edema, No Calf Tenderness Neurology: alert, oriented, follow commands Assessment Assessment This is a pleasant 36 yo who was recently discharge on 06/17/2017 and was noted at that time with CHF exacerbation which was likely due to some of his med running out particularly the metoprolol. 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 He has been on lifevest since he was initially noted with NICM. He is then readmitted for SOA and abdominal pain near the epigastric region and general surgery has been consulted. He woke up the other day with SOA but no n/v and no peripheral edema, palpitations. Positive for PND and orthopnea at home but much better so far. He did admit that he started drinking ETOH again. 1. Acute on chronic systolic/diastolic CHF: compensated 2. NICM: EF 15% NYHA2 3. Abdominal pain: possible GB/biliary disease. Discussed with PCP, no surgical plans. Pain better. 4. Recent bilateral renal infarct/embolic CVA 5. Started drinking ETOH again Recommendations 1. Continue with secondary prevention 2. Continue with optimization and lifevest 3. Will need to be placed on heparin if eliquis is needing to be held 4. Increase lasix to 40 mg daily. Start on low dose lisinopril 2.5 mg if BP trend continues to be adequate. 5. Discussed CHF symptoms, daily wt, daily home BP/HR monitoring. low sodium diet 6. Dietitian to see 7. discussed complete cessation of ETOH. 8. F/U 07/10 in the office ALIZE FOWLER APRN Jun 20, 2017 15:11
--- NOTE | 2017-06-20 15:26 | RAD ---
Hepatobiliary scan 06/20/2017 Indication: Epigastric pain x2 days Comparison study: Right upper quadrant ultrasound 06/19/2017 Discussion: Imaging over the abdomen was performed following the administration of 5.5 mCi of technetium 99 labeled Choletec. Following visualization of the gallbladder 1.3 mcg of sincalide was administered. Imaging over the abdomen was continued in the gallbladder ejection fraction was calculated. The gallbladder is visualized at approximately 20 minutes. The emptying of the gallbladder and filling of the small bowel radiotracer is noted. Some free pertechnetate is noted in the bladder. The gallbladder ejection fraction is calculated at 93% (anything greater than 35% is normal). Impression: 1. No scintigraphic evidence of cholecystitis 2. Normal gallbladder ejection fraction
--- NOTE | 2017-06-20 15:37 | PDOC ---
PROGRESS NOTES Chief Complaint Chief Complaint acute abdominal pain severe cardiomyopathy and ejection fraction of 15, history of CVA and renal infarcts, coagulopathic htn History of Present Illness History of Present Illness pain is better has been NPO US and DEVORAH viera CV consult, patient should not be off anticoagulation with recent history pain better, will try PO intake, restart eliquis, may try to DC in AM Vitals Vitals Vital Signs Date Time Temp Pulse Resp B/P (MAP) Pulse Ox O2 Delivery O2 Flow Rate FiO2 06/20/17 11:00 98.5 83 18 114/85 (95) 96 Room Air 98.5 Physical Exam General: Alert, Oriented X3, Cooperative, No acute distress Heart: Regular rate, Normal S1, Normal S2, No murmurs Lungs: Clear Abdomen: Soft, Other (epigastric TTP) Extremities: No clubbing, No cyanosis Skin: No rashes, No breakdown Labs LABS Laboratory Tests Test 06/19/17 15:40 06/20/17 05:15 Urine Color Yellow Urine Clarity Clear Urine pH 5.5 Urine Specific [place] >=1.030 Urine Protein Negative mg/dL (NEG-TRACE) Urine Glucose (UA) Negative mg/dL (NEG) Urine Ketones (Stick) Negative mg/dL (NEG) Urine Blood Negative (NEG) Urine Nitrite Negative (NEG) Urine Bilirubin Negative (NEG) Urine Urobilinogen Dipstick 0.2 mg/dL (0.2 mg/dL) Urine Leukocyte Esterase Negative (NEG) Urine RBC 0 /HPF (0-2) Urine WBC 0 /HPF (0-4) Urine Squamous Epithelial Cells Occ /LPF Urine Bacteria 0 /HPF (0-FEW) White Blood Count 3.4 x10^3/uL (4.0-11.0) Red Blood Count 3.86 x10^6/uL (4.30-5.70) Hemoglobin 11.8 g/dL (13.0-17.5) Hematocrit 36.4 % (39.0-53.0) Mean Corpuscular Volume 94 fL (79-100) Mean Corpuscular Hemoglobin 31 pg (25-35) Mean Corpuscular Hemoglobin Concent 33 g/dL (31-37) Red Cell Distribution Width 14.1 % (11.5-14.5) Platelet Count 150 x10^3/uL (140-400) Neutrophils (%) (Auto) 40 % (31-73) Lymphocytes (%) (Auto) 40 % (24-48) Monocytes (%) (Auto) 15 % (0-9) Eosinophils (%) (Auto) 4 % (0-3) Basophils (%) (Auto) 1 % (0-3) Neutrophils # (Auto) 1.4 x10^3uL (1.8-7.7) Lymphocytes # (Auto) 1.4 x10^3/uL (1.0-4.8) Monocytes # (Auto) 0.5 x10^3/uL (0.0-1.1) Eosinophils # (Auto) 0.1 x10^3/uL (0.0-0.7) Basophils # (Auto) 0.0 x10^3/uL (0.0-0.2) Sodium Level 138 mmol/L (136-145) Potassium Level 4.1 mmol/L (3.5-5.1) Chloride Level 102 mmol/L (98-107) Carbon Dioxide Level 27 mmol/L (21-32) Anion Gap 9 (6-14) Blood Urea Nitrogen 18 mg/dL (8-26) Creatinine 1.1 mg/dL (0.7-1.3) Estimated GFR (Cockcroft-Gault) 90.6 Glucose Level 89 mg/dL (70-99) Calcium Level 9.5 mg/dL (8.5-10.1) Total Bilirubin 1.5 mg/dL (0.2-1.0) Direct Bilirubin 0.3 mg/dL (0.0-0.2) Aspartate Amino Transf (AST/SGOT) 35 U/L (15-37) Alanine Aminotransferase (ALT/SGPT) 38 U/L (16-63) Alkaline Phosphatase 120 U/L (46-116) Total Protein 6.7 g/dL (6.4-8.2) Albumin 3.2 g/dL (3.4-5.0) Assessment and Plan Assessmemt and Plan Problems Medical Problems: (1) Abdominal pain Status: Acute Problems: Comment Review of Relevant I have reviewed the following items ron (where applicable) has been applied. Labs Laboratory Tests Test 06/19/17 13:20 06/19/17 15:40 06/20/17 05:15 White Blood Count 3.2 x10^3/uL (4.0-11.0) 3.4 x10^3/uL (4.0-11.0) Red Blood Count 3.90 x10^6/uL (4.30-5.70) 3.86 x10^6/uL (4.30-5.70) Hemoglobin 12.1 g/dL (13.0-17.5) 11.8 g/dL (13.0-17.5) Hematocrit 36.8 % (39.0-53.0) 36.4 % (39.0-53.0) Mean Corpuscular Volume 94 fL (79-100) 94 fL (79-100) Mean Corpuscular Hemoglobin 31 pg (25-35) 31 pg (25-35) Mean Corpuscular Hemoglobin Concent 33 g/dL (31-37) 33 g/dL (31-37) Red Cell Distribution Width 14.0 % (11.5-14.5) 14.1 % (11.5-14.5) Platelet Count 161 x10^3/uL (140-400) 150 x10^3/uL (140-400) Neutrophils (%) (Auto) 43 % (31-73) 40 % (31-73) Lymphocytes (%) (Auto) 37 % (24-48) 40 % (24-48) Monocytes (%) (Auto) 18 % (0-9) 15 % (0-9) Eosinophils (%) (Auto) 2 % (0-3) 4 % (0-3) Basophils (%) (Auto) 1 % (0-3) 1 % (0-3) Neutrophils # (Auto) 1.4 x10^3uL (1.8-7.7) 1.4 x10^3uL (1.8-7.7) Lymphocytes # (Auto) 1.2 x10^3/uL (1.0-4.8) 1.4 x10^3/uL (1.0-4.8) Monocytes # (Auto) 0.6 x10^3/uL (0.0-1.1) 0.5 x10^3/uL (0.0-1.1) Eosinophils # (Auto) 0.1 x10^3/uL (0.0-0.7) 0.1 x10^3/uL (0.0-0.7) Basophils # (Auto) 0.0 x10^3/uL (0.0-0.2) 0.0 x10^3/uL (0.0-0.2) Platelet Estimate Adequate (ADEQUATE) Large Platelets Few Giant Platelets Occ Sodium Level 138 mmol/L (136-145) 138 mmol/L (136-145) Potassium Level 4.5 mmol/L (3.5-5.1) 4.1 mmol/L (3.5-5.1) Chloride Level 101 mmol/L (98-107) 102 mmol/L (98-107) Carbon Dioxide Level 24 mmol/L (21-32) 27 mmol/L (21-32) Anion Gap 13 (6-14) 9 (6-14) Blood Urea Nitrogen 22 mg/dL (8-26) 18 mg/dL (8-26) Creatinine 1.2 mg/dL (0.7-1.3) 1.1 mg/dL (0.7-1.3) Estimated GFR (Cockcroft-Gault) 82.0 90.6 BUN/Creatinine Ratio 18 (6-20) Glucose Level 102 mg/dL (70-99) 89 mg/dL (70-99) Calcium Level 9.1 mg/dL (8.5-10.1) 9.5 mg/dL (8.5-10.1) Total Bilirubin 1.5 mg/dL (0.2-1.0) 1.5 mg/dL (0.2-1.0) Aspartate Amino Transf (AST/SGOT) 78 U/L (15-37) 35 U/L (15-37) Alanine Aminotransferase (ALT/SGPT) 50 U/L (16-63) 38 U/L (16-63) Alkaline Phosphatase 139 U/L (46-116) 120 U/L (46-116) Creatine Kinase 139 U/L (39-308) Creatine Kinase MB (Mass) 1.7 ng/mL (0.0-3.6) Creatine Kinase MB Relative Index 1.2 % (0-4) Troponin I Quantitative 0.027 ng/mL (0.000-0.055) BH-Njm-R-Type Natriuretic Peptide 4393 pg/mL (0-124) Total Protein 7.4 g/dL (6.4-8.2) 6.7 g/dL (6.4-8.2) Albumin 3.5 g/dL (3.4-5.0) 3.2 g/dL (3.4-5.0) Albumin/Globulin Ratio 0.9 (1.0-1.7) Lipase 114 U/L (73-393) Urine Color Yellow Urine Clarity Clear Urine pH 5.5 Urine Specific [place] >=1.030 Urine Protein Negative mg/dL (NEG-TRACE) Urine Glucose (UA) Negative mg/dL (NEG) Urine Ketones (Stick) Negative mg/dL (NEG) Urine Blood Negative (NEG) Urine Nitrite Negative (NEG) Urine Bilirubin Negative (NEG) Urine Urobilinogen Dipstick 0.2 mg/dL (0.2 mg/dL) Urine Leukocyte Esterase Negative (NEG) Urine RBC 0 /HPF (0-2) Urine WBC 0 /HPF (0-4) Urine Squamous Epithelial Cells Occ /LPF Urine Bacteria 0 /HPF (0-FEW) Direct Bilirubin 0.3 mg/dL (0.0-0.2) Laboratory Tests Test 06/19/17 15:40 06/20/17 05:15 Urine Color Yellow Urine Clarity Clear Urine pH 5.5 Urine Specific [place] >=1.030 Urine Protein Negative mg/dL (NEG-TRACE) Urine Glucose (UA) Negative mg/dL (NEG) Urine Ketones (Stick) Negative mg/dL (NEG) Urine Blood Negative (NEG) Urine Nitrite Negative (NEG) Urine Bilirubin Negative (NEG) Urine Urobilinogen Dipstick 0.2 mg/dL (0.2 mg/dL) Urine Leukocyte Esterase Negative (NEG) Urine RBC 0 /HPF (0-2) Urine WBC 0 /HPF (0-4) Urine Squamous Epithelial Cells Occ /LPF Urine Bacteria 0 /HPF (0-FEW) White Blood Count 3.4 x10^3/uL (4.0-11.0) Red Blood Count 3.86 x10^6/uL (4.30-5.70) Hemoglobin 11.8 g/dL (13.0-17.5) Hematocrit 36.4 % (39.0-53.0) Mean Corpuscular Volume 94 fL (79-100) Mean Corpuscular Hemoglobin 31 pg (25-35) Mean Corpuscular Hemoglobin Concent 33 g/dL (31-37) Red Cell Distribution Width 14.1 % (11.5-14.5) Platelet Count 150 x10^3/uL (140-400) Neutrophils (%) (Auto) 40 % (31-73) Lymphocytes (%) (Auto) 40 % (24-48) Monocytes (%) (Auto) 15 % (0-9) Eosinophils (%) (Auto) 4 % (0-3) Basophils (%) (Auto) 1 % (0-3) Neutrophils # (Auto) 1.4 x10^3uL (1.8-7.7) Lymphocytes # (Auto) 1.4 x10^3/uL (1.0-4.8) Monocytes # (Auto) 0.5 x10^3/uL (0.0-1.1) Eosinophils # (Auto) 0.1 x10^3/uL (0.0-0.7) Basophils # (Auto) 0.0 x10^3/uL (0.0-0.2) Sodium Level 138 mmol/L (136-145) Potassium Level 4.1 mmol/L (3.5-5.1) Chloride Level 102 mmol/L (98-107) Carbon Dioxide Level 27 mmol/L (21-32) Anion Gap 9 (6-14) Blood Urea Nitrogen 18 mg/dL (8-26) Creatinine 1.1 mg/dL (0.7-1.3) Estimated GFR (Cockcroft-Gault) 90.6 Glucose Level 89 mg/dL (70-99) Calcium Level 9.5 mg/dL (8.5-10.1) Total Bilirubin 1.5 mg/dL (0.2-1.0) Direct Bilirubin 0.3 mg/dL (0.0-0.2) Aspartate Amino Transf (AST/SGOT) 35 U/L (15-37) Alanine Aminotransferase (ALT/SGPT) 38 U/L (16-63) Alkaline Phosphatase 120 U/L (46-116) Total Protein 6.7 g/dL (6.4-8.2) Albumin 3.2 g/dL (3.4-5.0) Medications Current Medications Hydromorphone HCl (Dilaudid) 1 mg PRN Q15MIN PRN IV/SQ PAIN GREATER THAN 3/10 Last administered on 06/19/17 14:52; Start 06/19/17 at 13:30; Stop 06/19/17 at 22:30; Status DC Sodium Chloride (Normal Saline Flush) 10 ml QSHIFT PRN IV AFTER MEDS AND BLOOD DRAWS Last administered on 06/19/17 13:43; Start 06/19/17 at 13:30 Ondansetron HCl (Zofran) 4 mg 1X ONCE IV Last administered on 06/19/17 13:42 ; Start 06/19/17 at 13:30; Stop 06/19/17 at 13:31; Status DC Iohexol (Omnipaque 300 Mg/ml) 75 ml 1X ONCE IV Last administered on 14:00; Start 06/19/17 at 14:00; Stop 06/19/17 at 14:01; Status DC Info (Do NOT chart on this entry -- for MONITORING) 1 each PRN DAILY PRN MC SEE COMMENTS; Start 06/19/17 at 14:00; Stop 06/21/17 at 13:59 Ondansetron HCl (Zofran) 4 mg PRN Q8HRS PRN IV NAUSEA/VOMITING; Start at 19:45; Stop 06/20/17 at 19:44 Fentanyl Citrate (Fentanyl 2ml Vial) 50 mcg PRN Q1HR PRN IV PAIN; Start at 19:45; Stop 06/19/17 at 22:30; Status DC Apixaban (Eliquis) 5 mg BID PO ; Start 06/20/17 at 09:00; Stop 06/20/17 at 10: 59; Status DC Aspirin (Children'S Aspirin) 81 mg DAILY PO ; Start 06/20/17 at 09:00 Furosemide (Lasix) 20 mg DAILY PO ; Start 06/20/17 at 09:00 Metoprolol Succinate (Toprol Xl) 25 mg DAILY PO ; Start 06/20/17 at 09:00 Acetaminophen/ Hydrocodone Bitart (Lortab 5/325) 1 tab PRN Q4HRS PRN PO PAIN; Start 06/19/17 at 22:30 Famotidine (Pepcid Vial) 20 mg [id number] IVP Last administered on 06/20/17 09:09 ; Start 06/19/17 at 22:30 Sincalide 1.3 mcg/ Sodium Chloride 30 ml @ 120 mls/hr 1X ONCE IV Last administered on 06/20/17t 14:26; Start 06/20/17 at 13:45; Stop 06/20/17 at 13 :59; Status DC Active Scripts Active Furosemide 20 Mg Tablet 20 Mg PO DAILY 30 Days Polytrim Eye Drops (Polymyxin B Sulf/Trimethoprim) 10 Ml Drops 1 Drop EACHEYE 4 HOURS WHILE AWAKE 10 Days Reported Aspirin 81 Mg Tab.chew 81 Mg PO Metoprolol Succinate ( Xl ) (Metoprolol Succinate) 25 Mg Tab.er.24h 1 Tab PO DAILY Eliquis (Apixaban) 5 Mg Tablet 5 Mg PO BID Vitals/I & O Vital Sign - Last 24 Hours 06/19/17 06/19/17 06/19/17 06/19/17 16:00 16:00 16:30 17:00 Pulse 86 82 Resp 27 29 B/P (MAP) 119/90 (100) Pulse Ox 93 96 O2 Delivery Room Air 06/19/17 06/19/17 06/19/17 06/19/17 17:15 18:30 19:22 19:30 Pulse 80 92 Resp 29 26 B/P (MAP) 133/99 (110) 131/98 (109) 130/86 (101) Pulse Ox 94 99 06/19/17 06/19/17 06/19/17 06/19/17 20:00 20:30 20:30 20:55 Temp 98.3 98.3 Pulse 80 88 108 Resp 24 21 18 B/P (MAP) 122/92 (102) 135/94 (108) Pulse Ox 96 98 100 O2 Delivery Room Air 06/19/17 06/19/17 06/20/17 06/20/17 22:00 23:23 03:00 07:00 Temp 97.3 97.8 97.8 97.3 97.8 97.8 Pulse 97 89 94 Resp 18 18 18 B/P (MAP) 112/80 (91) 112/77 (89) 115/85 (95) Pulse Ox 93 95 94 O2 Delivery Room Air Room Air Room Air Room Air 06/20/17 11:00 Temp 98.5 98.5 Pulse 83 Resp 18 B/P (MAP) 114/85 (95) Pulse Ox 96 O2 Delivery Room Air Intake and Output 06/19/17 06/19/17 06/20/17 15:00 23:00 07:00 Intake Total 0 ml Output Total 25 ml Balance -25 ml 0 ml RENU ROBLES MD Jun 20, 2017 15:37
[2017-06-20] MEDS ORDERED: FUROSEMIDE 40 MG TABLET. PO ONE (15:45)
[2017-06-20] MEDS: APIXABAN 5 MG TABLET. PO SCH ×2 (15:57→23:06)
[2017-06-20 19:00] VITALS: BP 105/75
[2017-06-20 23:00] VITALS: BP 111/78
[2017-06-21 03:00] VITALS: BP 108/77
[2017-06-21 05:59] LABS: CALCIUM 9.1 mg/dL (8.5-10.1); CREATININE 1.4 mg/dL (0.7-1.3); GFR 68.6; MAGNESIUM 1.8 mg/dL (1.8-2.4); POTASSIUM 3.8 mmol/L (3.5-5.1)
[2017-06-21 07:00] VITALS: BP 99/70
[2017-06-21] MEDS ORDERED: POTASSIUM CHLORIDE 10 MEQ TABLET.ER. PO SCH (08:00)
--- NOTE | 2017-06-21 08:21 | PDOC ---
CARDIO Progress Notes Date and Time Date of Service 06/21/2017 Time of Evaluation 0810 Subjective Subjective: No Chest Pain, No shortness of breath, No Palpitations, No Dizziness Vitals Vitals Vital Signs Date Time Temp Pulse Resp B/P (MAP) Pulse Ox O2 Delivery O2 Flow Rate FiO2 06/21/17 03:00 97.5 92 18 108/77 (87) 100 Room Air 97.5 Weight Weight [ ] Input and Output Intake and Output Intake and Output 06/21/17 07:00 Output Total 1100 ml Balance -1100 ml Output Urine Total 1100 ml Laboratory Labs Laboratory Tests Test 06/21/17 03:53 Sodium Level 138 mmol/L (136-145) Potassium Level 3.8 mmol/L (3.5-5.1) Chloride Level 101 mmol/L (98-107) Carbon Dioxide Level 29 mmol/L (21-32) Anion Gap 8 (6-14) Blood Urea Nitrogen 24 mg/dL (8-26) Creatinine 1.4 mg/dL (0.7-1.3) Estimated GFR (Cockcroft-Gault) 68.6 Glucose Level 93 mg/dL (70-99) Calcium Level 9.1 mg/dL (8.5-10.1) Magnesium Level 1.8 mg/dL (1.8-2.4) Physical Exam HEENT: Neck Supple W Full Motion Chest: Symmetric LUNGS: Clear to Auscultation Heart: S1S2, RRR (SR) Abdomen: Soft N/T Extremities: No Edema, No Calf Tenderness Neurology: alert, oriented, follow commands Assessment Assessment 1. Acute on chronic systolic/diastolic CHF: compensated 2. NICM: EF 15% NYHA2 3. Abdominal pain: possible GB/biliary disease. Discussed with PCP, no surgical plans. Pain better. 4. Recent bilateral renal infarct/embolic CVA 5. Started drinking ETOH again Recommendations 1. Continue with secondary prevention, continue with current regimen 2. Continue with optimization and lifevest 3. Continue with eliquis 4. Again discussed CHF symptoms, daily wt, daily home BP/HR monitoring. low sodium diet 5. ETOH cessation. Discussed 2L FR and hydration adequacy. 6. F/U 07/10/2017 in the office, November DC per cardiac perspective ALIZE FOWLER APRN Jun 21, 2017 08:21
[2017-06-21] MEDS ORDERED: FUROSEMIDE 20 MG TABLET PO SCH (09:00)
[2017-06-21] MEDS ORDERED: LISINOPRIL 2.5 MG TABLET PO SCH (09:00)
[2017-06-21] MEDS: FAMOTIDINE 20 MG/2 ML VIAL IVP SCH (09:51)
[2017-06-21] MEDS: ASPIRIN CHEWABLE 81 MG TABLET. PO SCH (09:52)
[2017-06-21] MEDS: APIXABAN 5 MG TABLET. PO SCH (09:52)
--- NOTE | 2017-06-21 10:49 | PDOC ---
SURGICAL PROGRESS NOTE Subjective Pt feels better, decreased pain, able to eat Vital Signs Vital Signs Date Time Temp Pulse Resp B/P (MAP) Pulse Ox O2 Delivery O2 Flow Rate FiO2 06/21/17 07:00 97.6 94 16 99/70 (80) 94 Room Air 97.6 I&O Intake and Output 06/21/17 07:00 Output Total 1100 ml Balance -1100 ml Output Urine Total 1100 ml General: Alert, Oriented X3, Cooperative, No acute distress Abdomen: Soft, Other (min TTP epigastric) Labs Laboratory Tests Test 06/19/17 13:20 06/19/17 15:40 06/20/17 05:15 06/21/17 03:53 White Blood Count 3.2 x10^3/uL (4.0-11.0) 3.4 x10^3/uL (4.0-11.0) Red Blood Count 3.90 x10^6/uL (4.30-5.70) 3.86 x10^6/uL (4.30-5.70) Hemoglobin 12.1 g/dL (13.0-17.5) 11.8 g/dL (13.0-17.5) Hematocrit 36.8 % (39.0-53.0) 36.4 % (39.0-53.0) Mean Corpuscular Volume 94 fL (79-100) 94 fL (79-100) Mean Corpuscular Hemoglobin 31 pg (25-35) 31 pg (25-35) Mean Corpuscular Hemoglobin Concent 33 g/dL (31-37) 33 g/dL (31-37) Red Cell Distribution Width 14.0 % (11.5-14.5) 14.1 % (11.5-14.5) Platelet Count 161 x10^3/uL (140-400) 150 x10^3/uL (140-400) Neutrophils (%) (Auto) 43 % (31-73) 40 % (31-73) Lymphocytes (%) (Auto) 37 % (24-48) 40 % (24-48) Monocytes (%) (Auto) 18 % (0-9) 15 % (0-9) Eosinophils (%) (Auto) 2 % (0-3) 4 % (0-3) Basophils (%) (Auto) 1 % (0-3) 1 % (0-3) Neutrophils # (Auto) 1.4 x10^3uL (1.8-7.7) 1.4 x10^3uL (1.8-7.7) Lymphocytes # (Auto) 1.2 x10^3/uL (1.0-4.8) 1.4 x10^3/uL (1.0-4.8) Monocytes # (Auto) 0.6 x10^3/uL (0.0-1.1) 0.5 x10^3/uL (0.0-1.1) Eosinophils # (Auto) 0.1 x10^3/uL (0.0-0.7) 0.1 x10^3/uL (0.0-0.7) Basophils # (Auto) 0.0 x10^3/uL (0.0-0.2) 0.0 x10^3/uL (0.0-0.2) Platelet Estimate Adequate (ADEQUATE) Large Platelets Few Giant Platelets Occ Sodium Level 138 mmol/L (136-145) 138 mmol/L (136-145) 138 mmol/L (136-145) Potassium Level 4.5 mmol/L (3.5-5.1) 4.1 mmol/L (3.5-5.1) 3.8 mmol/L (3.5-5.1) Chloride Level 101 mmol/L (98-107) 102 mmol/L (98-107) 101 mmol/L (98-107) Carbon Dioxide Level 24 mmol/L (21-32) 27 mmol/L (21-32) 29 mmol/L (21-32) Anion Gap 13 (6-14) 9 (6-14) 8 (6-14) Blood Urea Nitrogen 22 mg/dL (8-26) 18 mg/dL (8-26) 24 mg/dL (8-26) Creatinine 1.2 mg/dL (0.7-1.3) 1.1 mg/dL (0.7-1.3) 1.4 mg/dL (0.7-1.3) Estimated GFR (Cockcroft-Gault) 82.0 90.6 68.6 BUN/Creatinine Ratio 18 (6-20) Glucose Level 102 mg/dL (70-99) 89 mg/dL (70-99) 93 mg/dL (70-99) Calcium Level 9.1 mg/dL (8.5-10.1) 9.5 mg/dL (8.5-10.1) 9.1 mg/dL (8.5-10.1) Total Bilirubin 1.5 mg/dL (0.2-1.0) 1.5 mg/dL (0.2-1.0) Aspartate Amino Transf (AST/SGOT) 78 U/L (15-37) 35 U/L (15-37) Alanine Aminotransferase (ALT/SGPT) 50 U/L (16-63) 38 U/L (16-63) Alkaline Phosphatase 139 U/L (46-116) 120 U/L (46-116) Creatine Kinase 139 U/L (39-308) Creatine Kinase MB (Mass) 1.7 ng/mL (0.0-3.6) Creatine Kinase MB Relative Index 1.2 % (0-4) Troponin I Quantitative 0.027 ng/mL (0.000-0.055) ZI-Nmu-I-Type Natriuretic Peptide 4393 pg/mL (0-124) Total Protein 7.4 g/dL (6.4-8.2) 6.7 g/dL (6.4-8.2) Albumin 3.5 g/dL (3.4-5.0) 3.2 g/dL (3.4-5.0) Albumin/Globulin Ratio 0.9 (1.0-1.7) Lipase 114 U/L (73-393) Urine Color Yellow Urine Clarity Clear Urine pH 5.5 Urine Specific [place] >=1.030 Urine Protein Negative mg/dL (NEG-TRACE) Urine Glucose (UA) Negative mg/dL (NEG) Urine Ketones (Stick) Negative mg/dL (NEG) Urine Blood Negative (NEG) Urine Nitrite Negative (NEG) Urine Bilirubin Negative (NEG) Urine Urobilinogen Dipstick 0.2 mg/dL (0.2 mg/dL) Urine Leukocyte Esterase Negative (NEG) Urine RBC 0 /HPF (0-2) Urine WBC 0 /HPF (0-4) Urine Squamous Epithelial Cells Occ /LPF Urine Bacteria 0 /HPF (0-FEW) Direct Bilirubin 0.3 mg/dL (0.0-0.2) Magnesium Level 1.8 mg/dL (1.8-2.4) Laboratory Tests Test 06/21/17 03:53 Sodium Level 138 mmol/L (136-145) Potassium Level 3.8 mmol/L (3.5-5.1) Chloride Level 101 mmol/L (98-107) Carbon Dioxide Level 29 mmol/L (21-32) Anion Gap 8 (6-14) Blood Urea Nitrogen 24 mg/dL (8-26) Creatinine 1.4 mg/dL (0.7-1.3) Estimated GFR (Cockcroft-Gault) 68.6 Glucose Level 93 mg/dL (70-99) Calcium Level 9.1 mg/dL (8.5-10.1) Magnesium Level 1.8 mg/dL (1.8-2.4) Problem List Problems Medical Problems: (1) Abdominal pain Status: Acute Assessment/Plan biliary dyskinesia ADAT cont supportive care OK to d/c from surgery POV prohibitive surgical candidate Problems: XOCHITL NUGENT MD Jun 21, 2017 10:49
[2017-06-21 11:00] VITALS: BP 104/81
[2017-06-21] MEDS ORDERED: LISI2.5T PO (11:53)
[2017-06-21] MEDS ORDERED: ANTI-COAG MONITOR BY PHARMACY. MC PRN (12:15)
--- NOTE | 2017-06-21 12:49 | PDOC3 ---
Discharge Summary Visit Information Date of Admission: Jun 19, 2017 Date of Discharge: Jun 21, 2017 Admitting Diagnosis Comment: acute abdominal pain, biliary dyskinesia severe cardiomyopathy and ejection fraction of 15, history of CVA and renal infarcts, coagulopathic htn Final Diagnosis Problems Medical Problems: (1) Abdominal pain Status: Acute Brief Hospital Course Allergies Allergies Coded Allergies Type Severity Reaction Last Updated Verified No Known Drug Allergies 05/12/17 No Vital Signs Vital Signs Date Time Temp Pulse Resp B/P (MAP) Pulse Ox O2 Delivery O2 Flow Rate FiO2 06/21/17 11:00 97.4 85 18 104/81 (89) 99 97.4 06/21/17 08:00 Room Air Lab Results Laboratory Tests Test 06/19/17 13:20 06/19/17 15:40 06/20/17 05:15 06/21/17 03:53 White Blood Count 3.2 x10^3/uL (4.0-11.0) 3.4 x10^3/uL (4.0-11.0) Red Blood Count 3.90 x10^6/uL (4.30-5.70) 3.86 x10^6/uL (4.30-5.70) Hemoglobin 12.1 g/dL (13.0-17.5) 11.8 g/dL (13.0-17.5) Hematocrit 36.8 % (39.0-53.0) 36.4 % (39.0-53.0) Mean Corpuscular Volume 94 fL (79-100) 94 fL (79-100) Mean Corpuscular Hemoglobin 31 pg (25-35) 31 pg (25-35) Mean Corpuscular Hemoglobin Concent 33 g/dL (31-37) 33 g/dL (31-37) Red Cell Distribution Width 14.0 % (11.5-14.5) 14.1 % (11.5-14.5) Platelet Count 161 x10^3/uL (140-400) 150 x10^3/uL (140-400) Neutrophils (%) (Auto) 43 % (31-73) 40 % (31-73) Lymphocytes (%) (Auto) 37 % (24-48) 40 % (24-48) Monocytes (%) (Auto) 18 % (0-9) 15 % (0-9) Eosinophils (%) (Auto) 2 % (0-3) 4 % (0-3) Basophils (%) (Auto) 1 % (0-3) 1 % (0-3) Neutrophils # (Auto) 1.4 x10^3uL (1.8-7.7) 1.4 x10^3uL (1.8-7.7) Lymphocytes # (Auto) 1.2 x10^3/uL (1.0-4.8) 1.4 x10^3/uL (1.0-4.8) Monocytes # (Auto) 0.6 x10^3/uL (0.0-1.1) 0.5 x10^3/uL (0.0-1.1) Eosinophils # (Auto) 0.1 x10^3/uL (0.0-0.7) 0.1 x10^3/uL (0.0-0.7) Basophils # (Auto) 0.0 x10^3/uL (0.0-0.2) 0.0 x10^3/uL (0.0-0.2) Platelet Estimate Adequate (ADEQUATE) Large Platelets Few Giant Platelets Occ Sodium Level 138 mmol/L (136-145) 138 mmol/L (136-145) 138 mmol/L (136-145) Potassium Level 4.5 mmol/L (3.5-5.1) 4.1 mmol/L (3.5-5.1) 3.8 mmol/L (3.5-5.1) Chloride Level 101 mmol/L (98-107) 102 mmol/L (98-107) 101 mmol/L (98-107) Carbon Dioxide Level 24 mmol/L (21-32) 27 mmol/L (21-32) 29 mmol/L (21-32) Anion Gap 13 (6-14) 9 (6-14) 8 (6-14) Blood Urea Nitrogen 22 mg/dL (8-26) 18 mg/dL (8-26) 24 mg/dL (8-26) Creatinine 1.2 mg/dL (0.7-1.3) 1.1 mg/dL (0.7-1.3) 1.4 mg/dL (0.7-1.3) Estimated GFR (Cockcroft-Gault) 82.0 90.6 68.6 BUN/Creatinine Ratio 18 (6-20) Glucose Level 102 mg/dL (70-99) 89 mg/dL (70-99) 93 mg/dL (70-99) Calcium Level 9.1 mg/dL (8.5-10.1) 9.5 mg/dL (8.5-10.1) 9.1 mg/dL (8.5-10.1) Total Bilirubin 1.5 mg/dL (0.2-1.0) 1.5 mg/dL (0.2-1.0) Aspartate Amino Transf (AST/SGOT) 78 U/L (15-37) 35 U/L (15-37) Alanine Aminotransferase (ALT/SGPT) 50 U/L (16-63) 38 U/L (16-63) Alkaline Phosphatase 139 U/L (46-116) 120 U/L (46-116) Creatine Kinase 139 U/L (39-308) Creatine Kinase MB (Mass) 1.7 ng/mL (0.0-3.6) Creatine Kinase MB Relative Index 1.2 % (0-4) Troponin I Quantitative 0.027 ng/mL (0.000-0.055) AQ-Fdx-P-Type Natriuretic Peptide 4393 pg/mL (0-124) Total Protein 7.4 g/dL (6.4-8.2) 6.7 g/dL (6.4-8.2) Albumin 3.5 g/dL (3.4-5.0) 3.2 g/dL (3.4-5.0) Albumin/Globulin Ratio 0.9 (1.0-1.7) Lipase 114 U/L (73-393) Urine Color Yellow Urine Clarity Clear Urine pH 5.5 Urine Specific [place] >=1.030 Urine Protein Negative mg/dL (NEG-TRACE) Urine Glucose (UA) Negative mg/dL (NEG) Urine Ketones (Stick) Negative mg/dL (NEG) Urine Blood Negative (NEG) Urine Nitrite Negative (NEG) Urine Bilirubin Negative (NEG) Urine Urobilinogen Dipstick 0.2 mg/dL (0.2 mg/dL) Urine Leukocyte Esterase Negative (NEG) Urine RBC 0 /HPF (0-2) Urine WBC 0 /HPF (0-4) Urine Squamous Epithelial Cells Occ /LPF Urine Bacteria 0 /HPF (0-FEW) Direct Bilirubin 0.3 mg/dL (0.0-0.2) Magnesium Level 1.8 mg/dL (1.8-2.4) Laboratory Tests Test 06/21/17 03:53 Sodium Level 138 mmol/L (136-145) Potassium Level 3.8 mmol/L (3.5-5.1) Chloride Level 101 mmol/L (98-107) Carbon Dioxide Level 29 mmol/L (21-32) Anion Gap 8 (6-14) Blood Urea Nitrogen 24 mg/dL (8-26) Creatinine 1.4 mg/dL (0.7-1.3) Estimated GFR (Cockcroft-Gault) 68.6 Glucose Level 93 mg/dL (70-99) Calcium Level 9.1 mg/dL (8.5-10.1) Magnesium Level 1.8 mg/dL (1.8-2.4) Brief Hospital Course Mr. Manning is a 36 old [place] male unfortunately has an EF of 15-20 % severe cardiomyopathy with currently a LifeVest, admitted because of abdominal pain and shortness of breath. Comanage with general surgery and cardiology. Abdominal pain was found to have maybe cholecystitis but patient's poor cardiac reserve is prohibitive to be a surgical candidate. Patient was managed with pain meds. Course remarkable for some hypotension. Patient on beta omer lisinopril of very low doses for his cardiac problems. Assessment by general surgery was biliary dyskinesia. from persepctive We are waiting for finalization of discharge medications as patient is hypotensive. I did spend a good 20 minutes in room discussing him about getting blood pressure cuff to monitor his blood pressure and to not take all of his heart medications if his blood pressures too low. Discussed also with cardiologyALIZE. Discharge disposition to home discharge medications please see Mar consults performed cardiology, general surgery procedures performed none time spent discharge this patient 32 minutes greater than 60% counseling and education Discharge Information Condition at Discharge: Improved Disposition/Orders: D/C to Home Scheduled Apixaban (Eliquis), 5 MG PO BID, (Reported) Furosemide (Furosemide), 20 MG PO DAILY Metoprolol Succinate (Metoprolol Succinate ( Xl )), 1 TAB PO DAILY, (Reported) Polymyxin B Sulf/Trimethoprim (Polytrim Eye Drops), 1 DROP EACHEYE 4 hours while awake Miscellaneous Medications Aspirin (Aspirin), 81 MG PO, (Reported) Discontinued Medications Lactobacillus Acidophilus (Probiotic), 1 EACH PO BID, (Reported) YEIMY GOLDEN MD Jun 21, 2017 12:49
[2017-06-21] MEDS: METOPROLOL SUCC 24HR ER 25 MG TAB.ER.24H. PO SCH (13:06)
[2017-06-21 13:48] VITALS: BP 89/59
[2017-06-21 14:03] VITALS: BP 89/61
== END 2017-06-21 14:56 | disposition home or self-care (01) | DRG 444 ==
LOC: ER 12:55 → 4 NORTH 19:25
PROVIDERS: ADMIT Internal Medicine Hematology & Oncology; ATTEND Internal Medicine Hematology & Oncology
DX: K82.8 Other specified diseases of gallbladder (principal); I50.43 Acute on chronic combined systolic (congestive) and diastolic (congestive) heart failure; N28.0 Ischemia and infarction of kidney; I42.0 Dilated cardiomyopathy; K81.9 Cholecystitis, unspecified; I11.0 Hypertensive heart disease with heart failure; I25.10 Atherosclerotic heart disease of native coronary artery without angina pectoris; K21.9 Gastro-esophageal reflux disease without esophagitis; R47.02 Dysphasia; Z86.73 Personal history of transient ischemic attack (TIA), and cerebral infarction without residual deficits; Z87.01 Personal history of pneumonia (recurrent)
CPT/HCPCS: 36415; 71010; 74177; 76705; 78226; 80048; 80053; 80076; 81001; 82553; 83690; 83735; 83880; 84484; 85025; 93005; 96374; 96375; 96376; A9537; J1170; J2405; J2805; Q9967; S0028; 99285-25

== ENCOUNTER 2017-07-09 06:44 | Emergency (ER) | payer SELFPAY, OTHER ==
[2017-07-09 07:35] LABS: ADD MAN DIFF? NO
[2017-07-09 07:40] LABS: BASO # 0.1 x10^3/uL (0.0-0.2); BASO % 3 % (0-3); EOS # 0.2 x10^3/uL (0.0-0.7); EOS % 4 % (0-3); HEMATOCRIT 44.3 % (39.0-53.0); HEMOGLOBIN 14.6 g/dL (13.0-17.5); LYMPH # 1.5 x10^3/uL (1.0-4.8); LYMPH % 41 % (24-48); MEAN CORPUSCULAR HEMOGLOBIN 30 pg (25-35); MEAN CORPUSCULAR HGB CONC 33 g/dL (31-37); MEAN CORPUSCULAR VOLUME 92 fL (79-100); MONO # 0.5 x10^3/uL (0.0-1.1); MONO % 14 % (0-9); NEUT # 1.4 x10^3uL (1.8-7.7); NEUT % 38 % (31-73); PLATELET COUNT 158 x10^3/uL (140-400); RED BLOOD COUNT 4.82 x10^6/uL (4.30-5.70); RED CELL DISTRIBUTION WIDTH 14.1 % (11.5-14.5); WHITE BLOOD COUNT 3.7 x10^3/uL (4.0-11.0)
[2017-07-09 07:52] LABS: ANION GAP 13 (6-14); BLOOD UREA NITROGEN 23 mg/dL (8-26); BUN/CREATININE RATIO 18 (6-20); CALCIUM 9.5 mg/dL (8.5-10.1); CARBON DIOXIDE 26 mmol/L (21-32); CHLORIDE 99 mmol/L (98-107); CREATININE 1.3 mg/dL (0.7-1.3); GFR 74.8; GLUCOSE 141 mg/dL (70-99); LIPASE 106 U/L (73-393); POTASSIUM 3.8 mmol/L (3.5-5.1); SODIUM 138 mmol/L (136-145)
[2017-07-09 07:52] LABS: AMYLASE 44 U/L (25-115)
[2017-07-09 07:58] LABS: TROPONINI 0.042 ng/mL (0.000-0.055)
[2017-07-09 08:00] LABS: ALBUMIN 3.5 g/dL (3.4-5.0); ALK PHOS 94 U/L (46-116); ALT (SGPT) 34 U/L (16-63); AST (SGOT) 34 U/L (15-37); TOTAL BILIRUBIN 3.9 mg/dL (0.2-1.0); TOTAL PROTEIN 7.1 g/dL (6.4-8.2)
[2017-07-09 08:07] LABS: CKMB INDEX 2.1 % (0-4); CKMB MASS 2.8 ng/mL (0.0-3.6); CREATINE KINASE 132 U/L (39-308)
== END 2017-07-09 08:20 | disposition home or self-care (01) ==
LOC: ER 06:44
DX: G89.29 Other chronic pain (principal); R10.84 Generalized abdominal pain; R06.02 Shortness of breath; Z86.73 Personal history of transient ischemic attack (TIA), and cerebral infarction without residual deficits; Z87.891 Personal history of nicotine dependence
CPT/HCPCS: 36415; 71046; 80053; 82150; 82553; 83690; 84484; 85025; 93005; 99285-25

== ENCOUNTER 2017-08-24 23:52 | Inpatient (IN) | payer SELFPAY ==
[2017-08-25 00:23] LABS: ADD MAN DIFF? NO
[2017-08-25 00:30] LABS: BASO % 1 % (0-3); EOS # 0.1 x10^3/uL (0.0-0.7); EOS % 1 % (0-3); HEMATOCRIT 42.3 % (39.0-53.0); HEMOGLOBIN 14.1 g/dL (13.0-17.5); LYMPH # 2.1 x10^3/uL (1.0-4.8); LYMPH % 48 % (24-48); MEAN CORPUSCULAR HEMOGLOBIN 31 pg (25-35); MEAN CORPUSCULAR HGB CONC 33 g/dL (31-37); MEAN CORPUSCULAR VOLUME 94 fL (79-100); MONO # 0.4 x10^3/uL (0.0-1.1); MONO % 9 % (0-9); NEUT # 1.8 x10^3uL (1.8-7.7); NEUT % 41 % (31-73); PLATELET COUNT 168 x10^3/uL (140-400); RED BLOOD COUNT 4.52 x10^6/uL (4.30-5.70); RED CELL DISTRIBUTION WIDTH 15.4 % (11.5-14.5); WHITE BLOOD COUNT 4.4 x10^3/uL (4.0-11.0)
[2017-08-25 00:37] LABS: ANION GAP 13 (6-14); BLOOD UREA NITROGEN 35 mg/dL (8-26); BUN/CREATININE RATIO 22 (6-20); CARBON DIOXIDE 25 mmol/L (21-32); CHLORIDE 99 mmol/L (98-107); CREATININE 1.6 mg/dL (0.7-1.3); GFR 58.8; GLUCOSE 134 mg/dL (70-99); POTASSIUM 4.3 mmol/L (3.5-5.1); SODIUM 137 mmol/L (136-145)
[2017-08-25 00:43] LABS: ALBUMIN 3.5 g/dL (3.4-5.0); ALK PHOS 172 U/L (46-116); ALT (SGPT) 48 U/L (16-63); AST (SGOT) 50 U/L (15-37); LIPASE 123 U/L (73-393); TOTAL BILIRUBIN 2.9 mg/dL (0.2-1.0); TOTAL PROTEIN 7.1 g/dL (6.4-8.2)
[2017-08-25 00:48] LABS: NT-PRO BNP 7391 pg/mL (0-124)
[2017-08-25 01:24] LABS: INFLUENZA A PATIENT NEGATIVE (NEGATIVE); INFLUENZA B PATIENT NEGATIVE (NEGATIVE); OBC FLU VALID
[2017-08-25] MEDS: FUROSEMIDE 20 MG/2 ML VIAL. IVP (03:01)
[2017-08-25] MEDS: NITROGLYCERIN OINT 1 GM PACKET. TP (03:02)
[2017-08-25 04:28] LABS: PLT ESTIMATE ADEQUATE (ADEQUATE)
[2017-08-25] MEDS ORDERED: MORPHINE SULFATE 2 MG/ML DISP.SYRIN. IV (11:15)
[2017-08-25] MEDS ORDERED: DOCUSATE SODIUM 100 MG CAPSULE. PO (11:15)
[2017-08-25] MEDS ORDERED: ACETAMINOPHEN 325 MG TABLET. PO (11:15)
[2017-08-25] MEDS ORDERED: hydrALAZINE 20 MG/ML VIAL. IVP (11:15)
[2017-08-25] MEDS: PANTOPRAZOLE 40 MG TABLET.DR. PO (11:48)
[2017-08-25] MEDS: FUROSEMIDE 20 MG TABLET PO (11:49)
[2017-08-25] MEDS: METOPROLOL SUCC 24HR ER 25 MG TAB.ER.24H. PO (11:49)
[2017-08-25] MEDS: ASPIRIN CHEWABLE 81 MG TABLET. PO (11:49)
[2017-08-25] MEDS: APIXABAN 5 MG TABLET. PO ×2 (11:49→21:18)
[2017-08-25 13:34] LABS: DIRECT BILIRUBIN 0.4 mg/dL (0.0-0.2)
[2017-08-25] MEDS: LISINOPRIL 2.5 MG TABLET PO (14:22)
[2017-08-25 20:12] LABS: C DIFF BY PCR Negative (Negative)
[2017-08-26 04:36] LABS: ADD MAN DIFF? NO
[2017-08-26 04:47] LABS: BASO % 1 % (0-3); EOS # 0.1 x10^3/uL (0.0-0.7); EOS % 2 % (0-3); HEMATOCRIT 39.4 % (39.0-53.0); LYMPH # 1.7 x10^3/uL (1.0-4.8); LYMPH % 46 % (24-48); MEAN CORPUSCULAR HEMOGLOBIN 31 pg (25-35); MEAN CORPUSCULAR HGB CONC 33 g/dL (31-37); MEAN CORPUSCULAR VOLUME 94 fL (79-100); MONO # 0.4 x10^3/uL (0.0-1.1); MONO % 10 % (0-9); NEUT # 1.5 x10^3uL (1.8-7.7); NEUT % 40 % (31-73); PLATELET COUNT 143 x10^3/uL (140-400); RED BLOOD COUNT 4.19 x10^6/uL (4.30-5.70); RED CELL DISTRIBUTION WIDTH 15.2 % (11.5-14.5); WHITE BLOOD COUNT 3.8 x10^3/uL (4.0-11.0)
[2017-08-26 05:29] LABS: ANION GAP 8 (6-14); BLOOD UREA NITROGEN 32 mg/dL (8-26); CALCIUM 8.8 mg/dL (8.5-10.1); CARBON DIOXIDE 27 mmol/L (21-32); CHLORIDE 102 mmol/L (98-107); CREATININE 1.5 mg/dL (0.7-1.3); GFR 63.4; GLUCOSE 94 mg/dL (70-99); POTASSIUM 3.8 mmol/L (3.5-5.1); SODIUM 137 mmol/L (136-145)
[2017-08-26] MEDS: LISINOPRIL 2.5 MG TABLET PO (09:00)
[2017-08-26] MEDS: METOPROLOL SUCC 24HR ER 25 MG TAB.ER.24H. PO ×2 (09:00→20:56)
[2017-08-26] MEDS ORDERED: POLYMYXIN/TRIMETHOPRIM OPHTH SOLUTION 10ML BOTTLE. OU (09:00)
[2017-08-26] MEDS: FUROSEMIDE 20 MG TABLET PO (09:00)
[2017-08-26] MEDS: ASPIRIN CHEWABLE 81 MG TABLET. PO (09:54)
[2017-08-26] MEDS: APIXABAN 5 MG TABLET. PO ×2 (09:54→20:56)
[2017-08-26] MEDS: PANTOPRAZOLE 40 MG TABLET.DR. PO (09:54)
[2017-08-26] MEDS: ANTI-COAG MONITOR BY PHARMACY. MC (15:17)
[2017-08-26] MEDS: traMADol 50 MG TABLET PO (23:08)
[2017-08-27 05:14] LABS: ADD MAN DIFF? NO
[2017-08-27 05:42] LABS: ALBUMIN 3.1 g/dL (3.4-5.0); ALBUMIN/GLOBULIN RATIO 0.9 (1.0-1.7); ALK PHOS 129 U/L (46-116); ALT (SGPT) 41 U/L (16-63); ANION GAP 9 (6-14); AST (SGOT) 37 U/L (15-37); BLOOD UREA NITROGEN 28 mg/dL (8-26); BUN/CREATININE RATIO 16 (6-20); CALCIUM 8.8 mg/dL (8.5-10.1); CARBON DIOXIDE 29 mmol/L (21-32); CHLORIDE 101 mmol/L (98-107); CREATININE 1.8 mg/dL (0.7-1.3); GFR 51.4; GLUCOSE 100 mg/dL (70-99); MAGNESIUM 1.8 mg/dL (1.8-2.4); SODIUM 139 mmol/L (136-145); TOTAL BILIRUBIN 1.7 mg/dL (0.2-1.0); TOTAL PROTEIN 6.6 g/dL (6.4-8.2)
[2017-08-27 05:46] LABS: BASO % 1 % (0-3); EOS # 0.1 x10^3/uL (0.0-0.7); EOS % 1 % (0-3); HEMATOCRIT 41.8 % (39.0-53.0); HEMOGLOBIN 13.6 g/dL (13.0-17.5); LYMPH # 1.7 x10^3/uL (1.0-4.8); LYMPH % 42 % (24-48); MEAN CORPUSCULAR HEMOGLOBIN 30 pg (25-35); MEAN CORPUSCULAR HGB CONC 32 g/dL (31-37); MEAN CORPUSCULAR VOLUME 94 fL (79-100); MONO # 0.3 x10^3/uL (0.0-1.1); MONO % 8 % (0-9); NEUT # 1.9 x10^3uL (1.8-7.7); NEUT % 48 % (31-73); PLATELET COUNT 159 x10^3/uL (140-400); RED BLOOD COUNT 4.46 x10^6/uL (4.30-5.70); RED CELL DISTRIBUTION WIDTH 15.2 % (11.5-14.5)
[2017-08-27] MEDS: PANTOPRAZOLE 40 MG TABLET.DR. PO ×2 (06:22→08:26)
[2017-08-27] MEDS: ASPIRIN CHEWABLE 81 MG TABLET. PO (08:26)
[2017-08-27] MEDS: APIXABAN 5 MG TABLET. PO ×2 (08:26→20:14)
[2017-08-27] MEDS: METOPROLOL SUCC 24HR ER 25 MG TAB.ER.24H. PO (08:27)
[2017-08-27] MEDS: LISINOPRIL 2.5 MG TABLET PO (09:00)
[2017-08-27] MEDS: FUROSEMIDE 20 MG TABLET PO (09:00)
[2017-08-27] MEDS: ANTI-COAG MONITOR BY PHARMACY. MC (10:08)
[2017-08-27] MEDS: LIDO:MAALOX:DONNATAL 1:1:1 15 ML SINGLE DOSE SWSW (14:00)
[2017-08-27] MEDS: ONDANSETRON PF 4 MG/2 ML VIAL. IV (19:36)
[2017-08-27 20:04] LABS: LIPASE 127 U/L (73-393)
[2017-08-28 06:00] LABS: ANION GAP 9 (6-14); BLOOD UREA NITROGEN 29 mg/dL (8-26); CALCIUM 9.5 mg/dL (8.5-10.1); CARBON DIOXIDE 26 mmol/L (21-32); CHLORIDE 99 mmol/L (98-107); CREATININE 1.9 mg/dL (0.7-1.3); GFR 48.2; GLUCOSE 95 mg/dL (70-99); MAGNESIUM 1.8 mg/dL (1.8-2.4); POTASSIUM 5.5 mmol/L (3.5-5.1); SODIUM 134 mmol/L (136-145)
[2017-08-28] MEDS: METOPROLOL SUCC 24HR ER 25 MG TAB.ER.24H. PO (08:27)
[2017-08-28] MEDS: ASPIRIN CHEWABLE 81 MG TABLET. PO (08:27)
[2017-08-28] MEDS: APIXABAN 5 MG TABLET. PO ×2 (08:27→21:25)
[2017-08-28] MEDS: PANTOPRAZOLE 40 MG TABLET.DR. PO (08:27)
[2017-08-28] MEDS: DICYCLOMINE HCL 10 MG CAPSULE PO ×2 (08:28→21:25)
[2017-08-28] MEDS: LISINOPRIL 2.5 MG TABLET PO (09:00)
[2017-08-28] MEDS: FUROSEMIDE 20 MG TABLET PO (09:00)
[2017-08-28] MEDS: ONDANSETRON PF 4 MG/2 ML VIAL. IV ×2 (13:43→21:25)
[2017-08-28] MEDS: FUROSEMIDE 20 MG/2 ML VIAL. IVP (13:45)
[2017-08-28 16:14] LABS: ANION GAP 7 (6-14); BLOOD UREA NITROGEN 32 mg/dL (8-26); CARBON DIOXIDE 27 mmol/L (21-32); CHLORIDE 99 mmol/L (98-107); CREATININE 1.9 mg/dL (0.7-1.3); GFR 48.2; GLUCOSE 127 mg/dL (70-99); POTASSIUM 4.5 mmol/L (3.5-5.1); SODIUM 133 mmol/L (136-145)
[2017-08-28] MEDS: LIDO:MAALOX:DONNATAL 1:1:1 15 ML SINGLE DOSE SWSW (16:18)
[2017-08-29 05:48] LABS: ANION GAP 8 (6-14); BLOOD UREA NITROGEN 33 mg/dL (8-26); CARBON DIOXIDE 26 mmol/L (21-32); CHLORIDE 99 mmol/L (98-107); CREATININE 1.8 mg/dL (0.7-1.3); GFR 51.4; GLUCOSE 99 mg/dL (70-99); POTASSIUM 4.6 mmol/L (3.5-5.1); SODIUM 133 mmol/L (136-145)
[2017-08-29] MEDS: FUROSEMIDE 20 MG TABLET PO (08:34)
[2017-08-29] MEDS: ASPIRIN CHEWABLE 81 MG TABLET. PO (08:34)
[2017-08-29] MEDS: APIXABAN 5 MG TABLET. PO (08:34)
[2017-08-29] MEDS: PANTOPRAZOLE 40 MG TABLET.DR. PO (08:34)
[2017-08-29] MEDS: LISINOPRIL 2.5 MG TABLET PO (08:34)
[2017-08-29] MEDS: METOPROLOL SUCC 24HR ER 25 MG TAB.ER.24H. PO (08:35)
[2017-08-29] MEDS ORDERED: MORPHINE SULFATE 4 MG/ML DISP.SYRIN. IV (14:35)
[2017-08-29] MEDS: ANTI-COAG MONITOR BY PHARMACY. MC (14:36)
== END 2017-08-29 15:06 | disposition home or self-care (01) | DRG 682 ==
LOC: ER 23:52 → 2 SOUTH 08-25 01:33
DX: N17.9 Acute kidney failure, unspecified (principal); I50.43 Acute on chronic combined systolic (congestive) and diastolic (congestive) heart failure; I42.9 Cardiomyopathy, unspecified; K81.9 Cholecystitis, unspecified; N28.0 Ischemia and infarction of kidney; I13.0 Hypertensive heart and chronic kidney disease with heart failure and stage 1 through stage 4 chronic kidney disease, or unspecified chronic kidney disease; G24.9 Dystonia, unspecified; I25.10 Atherosclerotic heart disease of native coronary artery without angina pectoris; K21.9 Gastro-esophageal reflux disease without esophagitis; K52.9 Noninfective gastroenteritis and colitis, unspecified; N18.3 Chronic kidney disease, stage 3 (moderate); F10.10 Alcohol abuse, uncomplicated; I69.320 Aphasia following cerebral infarction; Z87.01 Personal history of pneumonia (recurrent); I69.391 Dysphagia following cerebral infarction; [UNRECOGNIZED DIAGNOSIS CODE]
CPT/HCPCS: 36415; 71045; 74018; 80048; 80053; 82248; 83690; 83735; 83880; 84484; 85025; 87324; 87804; 87804-59; 93005; 93308; 99285; 99285-25; J2405

== ENCOUNTER 2017-09-16 20:08 | Inpatient (IN) | payer SELFPAY ==
[2017-09-16 20:52] LABS: ADD MAN DIFF? NO
[2017-09-16 20:54] LABS: BASO % 0 % (0-3); EOS # 0.1 x10^3/uL (0.0-0.7); EOS % 2 % (0-3); HEMATOCRIT 42.7 % (39.0-53.0); HEMOGLOBIN 13.7 g/dL (13.0-17.5); LYMPH # 2.2 x10^3/uL (1.0-4.8); LYMPH % 50 % (24-48); MEAN CORPUSCULAR HEMOGLOBIN 30 pg (25-35); MEAN CORPUSCULAR HGB CONC 32 g/dL (31-37); MEAN CORPUSCULAR VOLUME 92 fL (79-100); MONO # 0.4 x10^3/uL (0.0-1.1); MONO % 9 % (0-9); NEUT # 1.7 x10^3uL (1.8-7.7); NEUT % 39 % (31-73); PLATELET COUNT 214 x10^3/uL (140-400); RED BLOOD COUNT 4.63 x10^6/uL (4.30-5.70); RED CELL DISTRIBUTION WIDTH 14.9 % (11.5-14.5); WHITE BLOOD COUNT 4.4 x10^3/uL (4.0-11.0)
[2017-09-16 21:04] LABS: INR 1.5 (0.8-1.1); PARTIAL THROMBOPLASTIN TIME 30 SEC (24-38); PROTHROMBIN TIME PATIENT 17.9 SEC (11.7-14.0)
[2017-09-16 21:05] LABS: ANION GAP 14 (6-14); BLOOD UREA NITROGEN 36 mg/dL (8-26); BUN/CREATININE RATIO 17 (6-20); CARBON DIOXIDE 22 mmol/L (21-32); CHLORIDE 101 mmol/L (98-107); CREATININE 2.1 mg/dL (0.7-1.3); GLUCOSE 115 mg/dL (70-99); POTASSIUM 4.2 mmol/L (3.5-5.1); SODIUM 137 mmol/L (136-145)
[2017-09-16 21:11] LABS: ALBUMIN/GLOBULIN RATIO 0.9 (1.0-1.7); ALK PHOS 144 U/L (46-116); ALT (SGPT) 41 U/L (16-63); AST (SGOT) 36 U/L (15-37); LIPASE 177 U/L (73-393); MAGNESIUM 1.7 mg/dL (1.8-2.4); TOTAL BILIRUBIN 2.2 mg/dL (0.2-1.0); TOTAL PROTEIN 6.2 g/dL (6.4-8.2)
[2017-09-16 21:13] LABS: TROPONINI 0.025 ng/mL (0.000-0.055)
[2017-09-16 21:18] LABS: ETHANOL < 10 mg/dL (0-10)
[2017-09-16 21:20] LABS: NT-PRO BNP 7178 pg/mL (0-124)
[2017-09-16 21:35] LABS: PLT ESTIMATE ADEQUATE (ADEQUATE)
[2017-09-16] MEDS: MAGNESIUM OXIDE 400 MG TABLET PO (22:31)
[2017-09-17 01:57] LABS: TROPONINI 0.028 ng/mL (0.000-0.055)
[2017-09-17 03:42] LABS: AMPHETAMINE/METHAMPHETAMINE NEG (NEG); BARBITURATES NEG (NEG); BENZODIAZEPINES NEG (NEG); CANNABINOIDS NEG (NEG); COCAINE NEG (NEG); METHADONE NEG (NEG); OPIATES NEG (NEG); PHENCYCLIDINE NEG (NEG)
[2017-09-17 03:43] LABS: ETHANOL, URINE NEG (NEG)
[2017-09-17 04:06] LABS: ADD MAN DIFF? NO
[2017-09-17 04:21] LABS: BASO % 1 % (0-3); EOS % 1 % (0-3); HEMATOCRIT 42.9 % (39.0-53.0); HEMOGLOBIN 13.9 g/dL (13.0-17.5); LYMPH # 2.2 x10^3/uL (1.0-4.8); LYMPH % 46 % (24-48); MEAN CORPUSCULAR HEMOGLOBIN 30 pg (25-35); MEAN CORPUSCULAR HGB CONC 32 g/dL (31-37); MEAN CORPUSCULAR VOLUME 92 fL (79-100); MONO # 0.4 x10^3/uL (0.0-1.1); MONO % 8 % (0-9); NEUT # 2.2 x10^3uL (1.8-7.7); NEUT % 45 % (31-73); PLATELET COUNT 203 x10^3/uL (140-400); RED BLOOD COUNT 4.68 x10^6/uL (4.30-5.70); WHITE BLOOD COUNT 4.8 x10^3/uL (4.0-11.0)
[2017-09-17 04:35] LABS: ANION GAP 13 (6-14); BLOOD UREA NITROGEN 38 mg/dL (8-26); CALCIUM 9.3 mg/dL (8.5-10.1); CARBON DIOXIDE 21 mmol/L (21-32); CHLORIDE 101 mmol/L (98-107); CREATININE 1.9 mg/dL (0.7-1.3); GFR 48.2; GLUCOSE 115 mg/dL (70-99); POTASSIUM 4.9 mmol/L (3.5-5.1); SODIUM 135 mmol/L (136-145)
[2017-09-17 10:11] LABS: THYROID STIM HORMONE (TSH) 6.456 uIU/mL (0.358-3.74)
[2017-09-17] MEDS: DIGOXIN 125 MCG TABLET. PO (10:52)
[2017-09-17] MEDS: ASPIRIN CHEWABLE 81 MG TABLET. PO (10:52)
[2017-09-17] MEDS: FUROSEMIDE 20 MG TABLET PO (10:52)
[2017-09-17] MEDS: APIXABAN 5 MG TABLET. PO ×2 (10:52→20:17)
[2017-09-17] MEDS: METOPROLOL SUCC 24HR ER 25 MG TAB.ER.24H. PO (10:52)
[2017-09-17] MEDS: ANTI-COAG MONITOR BY PHARMACY. MC (11:00)
[2017-09-17] MEDS: ONDANSETRON PF 4 MG/2 ML VIAL. IV (12:05)
[2017-09-17] MEDS ORDERED: MORPHINE SULFATE 4 MG/ML DISP.SYRIN. IV (12:15)
[2017-09-17] MEDS ORDERED: DOCUSATE SODIUM 100 MG CAPSULE. PO (12:15)
[2017-09-17] MEDS ORDERED: traMADol 50 MG TABLET PO (12:15)
[2017-09-17] MEDS ORDERED: ACETAMINOPHEN 325 MG TABLET. PO (12:15)
[2017-09-17] MEDS ORDERED: hydrALAZINE 20 MG/ML VIAL. IVP (12:15)
[2017-09-17] MEDS ORDERED: ONDANSETRON PF 4 MG/2 ML VIAL. IV (12:15)
[2017-09-18 06:01] LABS: ANION GAP 9 (6-14); BLOOD UREA NITROGEN 42 mg/dL (8-26); CALCIUM 9.1 mg/dL (8.5-10.1); CARBON DIOXIDE 25 mmol/L (21-32); CHLORIDE 100 mmol/L (98-107); CREATININE 2.2 mg/dL (0.7-1.3); GFR 40.7; GLUCOSE 89 mg/dL (70-99); POTASSIUM 4.7 mmol/L (3.5-5.1); SODIUM 134 mmol/L (136-145)
[2017-09-18] MEDS: APIXABAN 5 MG TABLET. PO (08:51)
[2017-09-18] MEDS: DIGOXIN 125 MCG TABLET. PO (08:51)
[2017-09-18] MEDS: ASPIRIN CHEWABLE 81 MG TABLET. PO (08:52)
[2017-09-18] MEDS: METOPROLOL SUCC 24HR ER 25 MG TAB.ER.24H. PO (09:00)
[2017-09-18] MEDS: FUROSEMIDE 20 MG TABLET PO (09:00)
[2017-09-18] MEDS: ANTI-COAG MONITOR BY PHARMACY. MC (10:27)
== END 2017-09-18 16:05 | disposition home or self-care (01) | DRG 291 ==
LOC: ER 20:08 → 2 NORTH 21:26
DX: I13.0 Hypertensive heart and chronic kidney disease with heart failure and stage 1 through stage 4 chronic kidney disease, or unspecified chronic kidney disease (principal); I50.43 Acute on chronic combined systolic (congestive) and diastolic (congestive) heart failure; I42.9 Cardiomyopathy, unspecified; E44.1 Mild protein-calorie malnutrition; N18.3 Chronic kidney disease, stage 3 (moderate); E83.42 Hypomagnesemia; F32.9 Major depressive disorder, single episode, unspecified; F41.0 Panic disorder [episodic paroxysmal anxiety]; G24.9 Dystonia, unspecified; G89.29 Other chronic pain; I25.10 Atherosclerotic heart disease of native coronary artery without angina pectoris; K58.9 Irritable bowel syndrome, unspecified; K82.8 Other specified diseases of gallbladder; Z79.01 Long term (current) use of anticoagulants; Z86.73 Personal history of transient ischemic attack (TIA), and cerebral infarction without residual deficits; Z95.5 Presence of coronary angioplasty implant and graft; Z95.810 Presence of automatic (implantable) cardiac defibrillator; Z87.01 Personal history of pneumonia (recurrent)
CPT/HCPCS: 36415; 71045; 80048; 80053; 80307; 83690; 83735; 83880; 84439; 84443; 84481; 84484; 85025; 85610; 85730; 93005; 99285; 99285-25; G0480; J2405

== ENCOUNTER 2017-10-27 09:14 | Inpatient (IN) | payer OTHER, MEDICAID ==
[2017-10-27 10:05] LABS: ADD MAN DIFF? NO
[2017-10-27 10:18] LABS: BASO # 0.1 x10^3/uL (0.0-0.2); BASO % 1 % (0-3); EOS % 0 % (0-3); HEMATOCRIT 44.5 % (39.0-53.0); HEMOGLOBIN 14.4 g/dL (13.0-17.5); LYMPH # 2.4 x10^3/uL (1.0-4.8); LYMPH % 49 % (24-48); MEAN CORPUSCULAR HEMOGLOBIN 29 pg (25-35); MEAN CORPUSCULAR HGB CONC 32 g/dL (31-37); MEAN CORPUSCULAR VOLUME 89 fL (79-100); MONO # 0.4 x10^3/uL (0.0-1.1); MONO % 7 % (0-9); NEUT # 2.1 x10^3uL (1.8-7.7); NEUT % 43 % (31-73); PLATELET COUNT 146 x10^3/uL (140-400); RED BLOOD COUNT 4.99 x10^6/uL (4.30-5.70)
[2017-10-27 10:48] LABS: INR 1.9 (0.8-1.1); PROTHROMBIN TIME PATIENT 21.5 SEC (11.7-14.0)
[2017-10-27 11:22] LABS: TROPONINI 0.039 ng/mL (0.000-0.055)
[2017-10-27 11:25] LABS: ALBUMIN 3.2 g/dL (3.4-5.0); ALBUMIN/GLOBULIN RATIO 0.9 (1.0-1.7); ALK PHOS 148 U/L (46-116); ALT (SGPT) 35 U/L (16-63); ANION GAP 12 (6-14); AST (SGOT) 34 U/L (15-37); BLOOD UREA NITROGEN 49 mg/dL (8-26); BUN/CREATININE RATIO 22 (6-20); CALCIUM 9.3 mg/dL (8.5-10.1); CARBON DIOXIDE 23 mmol/L (21-32); CHLORIDE 101 mmol/L (98-107); CREATININE 2.2 mg/dL (0.7-1.3); GFR 40.5; GLUCOSE 116 mg/dL (70-99); LIPASE 125 U/L (73-393); POTASSIUM 4.8 mmol/L (3.5-5.1); SODIUM 136 mmol/L (136-145); TOTAL BILIRUBIN 2.4 mg/dL (0.2-1.0); TOTAL PROTEIN 6.9 g/dL (6.4-8.2)
[2017-10-27 11:31] LABS: CKMB INDEX 1.9 % (0-4); CKMB MASS 2.6 ng/mL (0.0-3.6); CREATINE KINASE 140 U/L (39-308)
[2017-10-27 11:31] LABS: NT-PRO BNP 13186 pg/mL (0-124)
[2017-10-27] MEDS: ONDANSETRON PF 4 MG/2 ML VIAL. IV (11:48)
[2017-10-27] MEDS ORDERED: ONDANSETRON PF 4 MG/2 ML VIAL. IV (12:00)
[2017-10-27] MEDS ORDERED: MORPHINE SULFATE 4 MG/ML DISP.SYRIN. IV (12:00)
[2017-10-27] MEDS ORDERED: ACETAMINOPHEN 325 MG TABLET. PO (12:00)
[2017-10-27 12:27] LABS: BILIRUBIN,URINE NEGATIVE (NEG); CLARITY,URINE CLEAR; COLOR,URINE AMBER; GLUCOSE,URINE NEGATIVE (NEG); NITRITE,URINE NEGATIVE (NEG); PH,URINE 5.5; PROTEIN,URINE 100 mg/dL (NEG-TRACE)
[2017-10-27 12:35] LABS: BACTERIA,URINE FEW /HPF (0-FEW); HYALINE CASTS, URINE MANY /HPF; RBC,URINE 0 /HPF (0-2); SQUAMOUS EPITHELIAL CELL,UR FEW /LPF
[2017-10-27] MEDS: DICYCLOMINE HCL 10 MG CAPSULE PO ×3 (14:18→21:09)
[2017-10-27 14:35] LABS: DIG < 0.2 ng/mL (0.9-2.0)
[2017-10-27 14:41] LABS: THYROID STIM HORMONE (TSH) 8.327 uIU/mL (0.358-3.74)
[2017-10-27 14:41] LABS: FREE T4 1.39 ng/dL (0.76-1.46)
[2017-10-27] MEDS: ASPIRIN CHEWABLE 81 MG TABLET. PO ×2 (15:00→15:43)
[2017-10-27] MEDS: ALPRAZolam 0.25 MG TABLET PO (15:00)
[2017-10-27] MEDS: FUROSEMIDE 20 MG TABLET PO (15:00)
[2017-10-27] MEDS: FUROSEMIDE 20 MG/2 ML VIAL. IVP (15:36)
[2017-10-27] MEDS: DIGOXIN 125 MCG TABLET. PO (15:44)
[2017-10-27] MEDS: METOPROLOL SUCC 24HR ER 25 MG TAB.ER.24H. PO (15:44)
[2017-10-27] MEDS: LISINOPRIL 5 MG TABLET. PO (16:31)
[2017-10-27 19:00] LABS: TROPONINI 0.035 ng/mL (0.000-0.055)
[2017-10-27] MEDS: APIXABAN 5 MG TABLET. PO (21:09)
[2017-10-28 04:40] LABS: ADD MAN DIFF? NO
[2017-10-28 04:44] LABS: BASO % 1 % (0-3); EOS # 0.1 x10^3/uL (0.0-0.7); EOS % 1 % (0-3); HEMATOCRIT 39.2 % (39.0-53.0); HEMOGLOBIN 12.7 g/dL (13.0-17.5); LYMPH # 1.9 x10^3/uL (1.0-4.8); LYMPH % 42 % (24-48); MEAN CORPUSCULAR HEMOGLOBIN 29 pg (25-35); MEAN CORPUSCULAR HGB CONC 33 g/dL (31-37); MEAN CORPUSCULAR VOLUME 89 fL (79-100); MONO # 0.4 x10^3/uL (0.0-1.1); MONO % 10 % (0-9); NEUT # 2.1 x10^3uL (1.8-7.7); NEUT % 47 % (31-73); PLATELET COUNT 126 x10^3/uL (140-400); RED BLOOD COUNT 4.42 x10^6/uL (4.30-5.70); RED CELL DISTRIBUTION WIDTH 17.1 % (11.5-14.5); WHITE BLOOD COUNT 4.5 x10^3/uL (4.0-11.0)
[2017-10-28 05:21] LABS: ALBUMIN 2.7 g/dL (3.4-5.0); ALBUMIN/GLOBULIN RATIO 0.9 (1.0-1.7); ALK PHOS 122 U/L (46-116); ALT (SGPT) 33 U/L (16-63); ANION GAP 8 (6-14); AST (SGOT) 36 U/L (15-37); BLOOD UREA NITROGEN 49 mg/dL (8-26); BUN/CREATININE RATIO 23 (6-20); CALCIUM 9.1 mg/dL (8.5-10.1); CARBON DIOXIDE 26 mmol/L (21-32); CHLORIDE 102 mmol/L (98-107); CREATININE 2.1 mg/dL (0.7-1.3); GFR 42.8; GLUCOSE 79 mg/dL (70-99); MAGNESIUM 1.5 mg/dL (1.8-2.4); POTASSIUM 4.1 mmol/L (3.5-5.1); SODIUM 136 mmol/L (136-145); TOTAL BILIRUBIN 2.3 mg/dL (0.2-1.0); TOTAL PROTEIN 5.8 g/dL (6.4-8.2)
[2017-10-28] MEDS: ALPRAZolam 0.25 MG TABLET PO (09:00)
[2017-10-28] MEDS: FUROSEMIDE 20 MG TABLET PO (09:07)
[2017-10-28] MEDS: DIGOXIN 125 MCG TABLET. PO (09:07)
[2017-10-28] MEDS: LISINOPRIL 5 MG TABLET. PO (09:08)
[2017-10-28] MEDS: DICYCLOMINE HCL 10 MG CAPSULE PO ×4 (09:08→21:02)
[2017-10-28] MEDS: METOPROLOL SUCC 24HR ER 25 MG TAB.ER.24H. PO (09:08)
[2017-10-28] MEDS: PARoxetine 20 MG TABLET PO (15:55)
[2017-10-28] MEDS: APIXABAN 5 MG TABLET. PO (21:01)
[2017-10-29 07:10] LABS: ANION GAP 9 (6-14); BLOOD UREA NITROGEN 45 mg/dL (8-26); CALCIUM 8.2 mg/dL (8.5-10.1); CARBON DIOXIDE 26 mmol/L (21-32); CHLORIDE 100 mmol/L (98-107); CREATININE 1.8 mg/dL (0.7-1.3); GFR 51.1; GLUCOSE 76 mg/dL (70-99); MAGNESIUM 1.4 mg/dL (1.8-2.4); SODIUM 135 mmol/L (136-145)
[2017-10-29] MEDS: ALPRAZolam 0.25 MG TABLET PO (09:00)
[2017-10-29] MEDS: LISINOPRIL 5 MG TABLET. PO (09:00)
[2017-10-29] MEDS: DIGOXIN 125 MCG TABLET. PO (09:00)
[2017-10-29] MEDS: ASPIRIN CHEWABLE 81 MG TABLET. PO (09:27)
[2017-10-29] MEDS: PARoxetine 20 MG TABLET PO (09:27)
[2017-10-29] MEDS: DICYCLOMINE HCL 10 MG CAPSULE PO ×4 (09:27→21:30)
[2017-10-29] MEDS: FUROSEMIDE 20 MG TABLET PO (09:27)
[2017-10-29] MEDS: METOPROLOL SUCC 24HR ER 25 MG TAB.ER.24H. PO (11:56)
[2017-10-29] MEDS: MAGNESIUM SULFATE 2GM 50 ML IV (15:22)
[2017-10-30] MEDS: IV RINGERS,LACTATED 1000ML 1,000 ML IV (07:00)
[2017-10-30] MEDS ORDERED: fentaNYL PF VIAL 100 MCG/2 ML VIAL IV ×2 (07:00)
[2017-10-30] MEDS ORDERED: ONDANSETRON PF 4 MG/2 ML VIAL. IV (07:00)
[2017-10-30] MEDS ORDERED: LIDOCAINE 1% PF 2 ML VIAL. ID (07:00)
[2017-10-30] MEDS ORDERED: MORPHINE SULFATE 4 MG/ML DISP.SYRIN. IV (07:00)
[2017-10-30] MEDS ORDERED: PROCHLORPERAZINE 10 MG/2 ML VIAL. IV (07:00)
[2017-10-30] MEDS: ALPRAZolam 0.25 MG TABLET PO (09:00)
[2017-10-30] MEDS: PARoxetine 20 MG TABLET PO (09:00)
[2017-10-30] MEDS: DIGOXIN 125 MCG TABLET. PO (09:02)
[2017-10-30] MEDS: FUROSEMIDE 20 MG TABLET PO (09:02)
[2017-10-30] MEDS: DICYCLOMINE HCL 10 MG CAPSULE PO ×4 (09:03→20:50)
[2017-10-30] MEDS: LISINOPRIL 5 MG TABLET. PO (09:03)
[2017-10-30] MEDS: ASPIRIN CHEWABLE 81 MG TABLET. PO (09:03)
[2017-10-30] MEDS: METOPROLOL SUCC 24HR ER 25 MG TAB.ER.24H. PO (09:03)
[2017-10-30] MEDS: BACITRACIN 50,000 UNIT in IV NORMAL SALINE 250ML 250 ML IRR (13:15)
[2017-10-30] MEDS ORDERED: LIDOCAINE 2%/EPI 1:100,000 20 ML VIAL. ×2 (14:00→14:01)
[2017-10-30] MEDS ORDERED: MIDAZOLAM HCL/PF 2 MG/2 ML VIAL. (14:12)
[2017-10-30] MEDS ORDERED: fentaNYL PF VIAL 100 MCG/2 ML VIAL (14:12)
[2017-10-30] MEDS ORDERED: KETAMINE HCL 500 MG/10 ML VIAL. (14:17)
[2017-10-30] MEDS ORDERED: PROPOFOL 20 ML IV ×3 (14:23→14:24)
[2017-10-30] MEDS: MIDAZOLAM HCL/PF 2 MG/2 ML VIAL. IV (14:45)
[2017-10-30] MEDS: LIDOCAINE 2%/EPI 1:100,000 20 ML VIAL. IJ (14:45)
[2017-10-30] MEDS: fentaNYL PF VIAL 100 MCG/2 ML VIAL IV (14:45)
[2017-10-30 16:22] LABS: INR 1.1 (0.8-1.1); PROTHROMBIN TIME PATIENT 13.8 SEC (11.7-14.0)
[2017-10-30] MEDS ORDERED: NO ANTICOAGULANT THERAPY. MC (16:45)
[2017-10-30] MEDS ORDERED: ceFAZolin SODIUM 1 GM in IV DEXTROSE 5% 50 ML IV (17:00)
[2017-10-30] MEDS: ceFAZolin SODIUM IV Push 1 GM VIAL. IVP (19:25)
[2017-10-30] MEDS: oxyCODONE/APAP 5/325 1 TAB TABLET PO (22:54)
[2017-10-30] MEDS: MORPHINE SULFATE 4 MG/ML DISP.SYRIN. IV (23:28)
[2017-10-31] MEDS: MORPHINE SULFATE 4 MG/ML DISP.SYRIN. IV ×2 (03:50→09:29)
[2017-10-31] MEDS: DICYCLOMINE HCL 10 MG CAPSULE PO ×2 (07:56→14:10)
[2017-10-31] MEDS: oxyCODONE/APAP 5/325 1 TAB TABLET PO ×2 (07:56→15:17)
[2017-10-31] MEDS: FUROSEMIDE 20 MG TABLET PO (07:57)
[2017-10-31] MEDS: ASPIRIN CHEWABLE 81 MG TABLET. PO (07:57)
[2017-10-31] MEDS: PARoxetine 20 MG TABLET PO (07:57)
[2017-10-31] MEDS: METOPROLOL SUCC 24HR ER 25 MG TAB.ER.24H. PO (07:57)
[2017-10-31] MEDS: LISINOPRIL 5 MG TABLET. PO (09:00)
[2017-10-31] MEDS: ALPRAZolam 0.25 MG TABLET PO (09:00)
[2017-10-31] MEDS: DIGOXIN 125 MCG TABLET. PO (09:27)
== END 2017-10-31 17:45 | disposition home or self-care (01) | DRG 226 ==
LOC: ER 09:14 → ED HOLD 11:47 → 2 NORTH 14:47
PROC: 0JH608Z Insertion of Defibrillator Generator into Chest Subcutaneous Tissue and Fascia, Open Approach (ICD-10-PCS; principal; 2017-10-30)
PROC: 02HK3KZ Insertion of Defibrillator Lead into Right Ventricle, Percutaneous Approach (ICD-10-PCS; 2017-10-30)
PROC: 02H63KZ Insertion of Defibrillator Lead into Right Atrium, Percutaneous Approach (ICD-10-PCS; 2017-10-30)
DX: I13.0 Hypertensive heart and chronic kidney disease with heart failure and stage 1 through stage 4 chronic kidney disease, or unspecified chronic kidney disease (principal); I50.43 Acute on chronic combined systolic (congestive) and diastolic (congestive) heart failure; I42.9 Cardiomyopathy, unspecified; E44.1 Mild protein-calorie malnutrition; N18.3 Chronic kidney disease, stage 3 (moderate); F32.9 Major depressive disorder, single episode, unspecified; F41.9 Anxiety disorder, unspecified; G89.29 Other chronic pain; K58.9 Irritable bowel syndrome, unspecified; I25.10 Atherosclerotic heart disease of native coronary artery without angina pectoris; K80.20 Calculus of gallbladder without cholecystitis without obstruction; K21.9 Gastro-esophageal reflux disease without esophagitis; K82.8 Other specified diseases of gallbladder; Z79.01 Long term (current) use of anticoagulants; Z82.49 Family history of ischemic heart disease and other diseases of the circulatory system; Z86.73 Personal history of transient ischemic attack (TIA), and cerebral infarction without residual deficits; Z68.21 Body mass index [BMI] 21.0-21.9, adult; Z87.01 Personal history of pneumonia (recurrent); Z95.5 Presence of coronary angioplasty implant and graft; Z95.0 Presence of cardiac pacemaker; Z95.810 Presence of automatic (implantable) cardiac defibrillator; Z79.899 Other long term (current) drug therapy
CPT/HCPCS: 33230; 36415; 71045; 71046; 80048; 80053; 80162; 81001; 82553; 83690; 83735; 83880; 84439; 84443; 84481; 84484; 85025; 85610; 93005; 96374; 97165-GO; 99285-25; C1721; C1895; J0690; J2250; J2270; J2405; J2704; J3010; J3475; J3490; J7050

== ENCOUNTER 2017-11-05 02:57 | Emergency (ER) | payer OTHER ==
[2017-11-05 03:20] LABS: ADD MAN DIFF? NO
[2017-11-05 03:24] LABS: BASO # 0.1 x10^3/uL (0.0-0.2); BASO % 1 % (0-3); EOS % 0 % (0-3); HEMATOCRIT 40.3 % (39.0-53.0); HEMOGLOBIN 13.1 g/dL (13.0-17.5); LYMPH # 2.7 x10^3/uL (1.0-4.8); LYMPH % 42 % (24-48); MEAN CORPUSCULAR HEMOGLOBIN 29 pg (25-35); MEAN CORPUSCULAR HGB CONC 32 g/dL (31-37); MEAN CORPUSCULAR VOLUME 89 fL (79-100); MONO # 0.4 x10^3/uL (0.0-1.1); MONO % 7 % (0-9); NEUT # 3.2 x10^3uL (1.8-7.7); NEUT % 49 % (31-73); PLATELET COUNT 181 x10^3/uL (140-400); RED BLOOD COUNT 4.52 x10^6/uL (4.30-5.70); RED CELL DISTRIBUTION WIDTH 17.6 % (11.5-14.5); WHITE BLOOD COUNT 6.4 x10^3/uL (4.0-11.0)
[2017-11-05 03:33] LABS: ANION GAP 16 (6-14); BLOOD UREA NITROGEN 35 mg/dL (8-26); BUN/CREATININE RATIO 19 (6-20); CALCIUM 9.1 mg/dL (8.5-10.1); CARBON DIOXIDE 21 mmol/L (21-32); CHLORIDE 100 mmol/L (98-107); CREATININE 1.8 mg/dL (0.7-1.3); GFR 51.1; GLUCOSE 148 mg/dL (70-99); POTASSIUM 4.9 mmol/L (3.5-5.1); SODIUM 137 mmol/L (136-145)
[2017-11-05 03:38] LABS: ALBUMIN 3.1 g/dL (3.4-5.0); ALBUMIN/GLOBULIN RATIO 0.8 (1.0-1.7); ALK PHOS 179 U/L (46-116); ALT (SGPT) 33 U/L (16-63); AST (SGOT) 42 U/L (15-37); TOTAL BILIRUBIN 2.6 mg/dL (0.2-1.0); TOTAL PROTEIN 7.2 g/dL (6.4-8.2)
[2017-11-05 03:58] LABS: PLT ESTIMATE ADEQUATE (ADEQUATE)
[2017-11-05 04:31] LABS: NT-PRO BNP 18750 pg/mL (0-124)
[2017-11-05] MEDS: FUROSEMIDE 40 MG/4 ML VIAL. IVP (05:00)
== END 2017-11-05 05:20 | disposition home or self-care (01) ==
LOC: ER 02:57
DX: I11.0 Hypertensive heart disease with heart failure (principal); I50.21 Acute systolic (congestive) heart failure; I25.10 Atherosclerotic heart disease of native coronary artery without angina pectoris; F41.9 Anxiety disorder, unspecified; Z95.5 Presence of coronary angioplasty implant and graft; Z95.810 Presence of automatic (implantable) cardiac defibrillator
CPT/HCPCS: 36415; 71045; 80053; 83880; 85025; 93005; 96374; 99285-25; J1940

== ENCOUNTER 2017-11-10 14:40 | Inpatient (IN) | payer OTHER ==
[2017-11-10 15:14] LABS: ADD MAN DIFF? NO
[2017-11-10 15:22] LABS: BASO # 0.1 x10^3/uL (0.0-0.2); BASO % 2 % (0-3); EOS # 0.1 x10^3/uL (0.0-0.7); EOS % 1 % (0-3); HEMATOCRIT 38.5 % (39.0-53.0); HEMOGLOBIN 12.4 g/dL (13.0-17.5); LYMPH # 2.1 x10^3/uL (1.0-4.8); LYMPH % 36 % (24-48); MEAN CORPUSCULAR HEMOGLOBIN 28 pg (25-35); MEAN CORPUSCULAR HGB CONC 32 g/dL (31-37); MEAN CORPUSCULAR VOLUME 88 fL (79-100); MONO # 0.6 x10^3/uL (0.0-1.1); MONO % 11 % (0-9); NEUT # 2.9 x10^3uL (1.8-7.7); NEUT % 51 % (31-73); PLATELET COUNT 209 x10^3/uL (140-400); RED BLOOD COUNT 4.37 x10^6/uL (4.30-5.70); RED CELL DISTRIBUTION WIDTH 17.2 % (11.5-14.5); WHITE BLOOD COUNT 5.8 x10^3/uL (4.0-11.0)
[2017-11-10 15:25] LABS: INR 1.6 (0.8-1.1); PROTHROMBIN TIME PATIENT 18.4 SEC (11.7-14.0)
[2017-11-10 15:27] LABS: ANION GAP 13 (6-14); BLOOD UREA NITROGEN 37 mg/dL (8-26); BUN/CREATININE RATIO 22 (6-20); CALCIUM 8.6 mg/dL (8.5-10.1); CARBON DIOXIDE 23 mmol/L (21-32); CHLORIDE 103 mmol/L (98-107); CREATININE 1.7 mg/dL (0.7-1.3); GFR 54.6; GLUCOSE 138 mg/dL (70-99); POTASSIUM 4.1 mmol/L (3.5-5.1); SODIUM 139 mmol/L (136-145)
[2017-11-10 15:33] LABS: ALBUMIN/GLOBULIN RATIO 0.8 (1.0-1.7); ALK PHOS 210 U/L (46-116); ALT (SGPT) 43 U/L (16-63); AST (SGOT) 55 U/L (15-37); LIPASE 302 U/L (73-393); MAGNESIUM 1.8 mg/dL (1.8-2.4)
[2017-11-10 15:35] LABS: TROPONINI 0.041 ng/mL (0.000-0.055)
[2017-11-10 15:39] LABS: DIG < 0.2 ng/mL (0.9-2.0)
[2017-11-10 15:41] LABS: NT-PRO BNP 18590 pg/mL (0-124)
[2017-11-10 15:41] LABS: CKMB INDEX 1.2 % (0-4); CKMB MASS 2.3 ng/mL (0.0-3.6); CREATINE KINASE 200 U/L (39-308)
[2017-11-10] MEDS ORDERED: FUROSEMIDE 40 MG/4 ML VIAL. IVP (16:45)
[2017-11-10] MEDS ORDERED: ONDANSETRON PF 4 MG/2 ML VIAL. IV (16:45)
[2017-11-10 16:52] LABS: BILIRUBIN,URINE NEGATIVE (NEG); CLARITY,URINE CLEAR; COLOR,URINE YELLOW; GLUCOSE,URINE NEGATIVE (NEG); NITRITE,URINE NEGATIVE (NEG); PH,URINE 5.5; PROTEIN,URINE NEGATIVE (NEG-TRACE); UROBILINOGEN,URINE 0.2 mg/dL (0.2 mg/dL)
[2017-11-10 16:58] LABS: AMPHETAMINE/METHAMPHETAMINE NEG (NEG); BARBITURATES NEG (NEG); BENZODIAZEPINES NEG (NEG); CANNABINOIDS NEG (NEG); COCAINE NEG (NEG); ETHANOL, URINE NEG (NEG); METHADONE NEG (NEG); OPIATES NEG (NEG); PHENCYCLIDINE NEG (NEG)
[2017-11-10 17:02] LABS: BACTERIA,URINE 0 /HPF (0-FEW); RBC,URINE 0 /HPF (0-2); SQUAMOUS EPITHELIAL CELL,UR FEW /LPF
[2017-11-10] MEDS: FUROSEMIDE 100 MG/10 ML VIAL. IVP (17:13)
[2017-11-10] MEDS: MORPHINE SULFATE 4 MG/ML DISP.SYRIN. IV (17:18)
[2017-11-11 04:15] LABS: ADD MAN DIFF? NO
[2017-11-11 04:20] LABS: BASO # 0.1 x10^3/uL (0.0-0.2); BASO % 1 % (0-3); EOS % 1 % (0-3); HEMATOCRIT 36.2 % (39.0-53.0); HEMOGLOBIN 11.9 g/dL (13.0-17.5); LYMPH # 2.5 x10^3/uL (1.0-4.8); LYMPH % 44 % (24-48); MEAN CORPUSCULAR HEMOGLOBIN 29 pg (25-35); MEAN CORPUSCULAR HGB CONC 33 g/dL (31-37); MEAN CORPUSCULAR VOLUME 88 fL (79-100); MONO # 0.6 x10^3/uL (0.0-1.1); MONO % 11 % (0-9); NEUT # 2.5 x10^3uL (1.8-7.7); NEUT % 43 % (31-73); PLATELET COUNT 209 x10^3/uL (140-400); RED BLOOD COUNT 4.13 x10^6/uL (4.30-5.70); RED CELL DISTRIBUTION WIDTH 17.6 % (11.5-14.5); WHITE BLOOD COUNT 5.7 x10^3/uL (4.0-11.0)
[2017-11-11 04:43] LABS: ANION GAP 11 (6-14); BLOOD UREA NITROGEN 35 mg/dL (8-26); CALCIUM 8.8 mg/dL (8.5-10.1); CARBON DIOXIDE 25 mmol/L (21-32); CHLORIDE 103 mmol/L (98-107); CREATININE 1.6 mg/dL (0.7-1.3); GFR 58.5; GLUCOSE 98 mg/dL (70-99); POTASSIUM 3.4 mmol/L (3.5-5.1); SODIUM 139 mmol/L (136-145)
[2017-11-11 05:00] LABS: NT-PRO BNP 16187 pg/mL (0-124)
[2017-11-11] MEDS: FUROSEMIDE 40 MG/4 ML VIAL. IVP ×2 (08:29→14:19)
[2017-11-11] MEDS: ACETAMINOPHEN 325 MG TABLET. PO (10:06)
[2017-11-11] MEDS: APIXABAN 5 MG TABLET. PO ×2 (10:51→19:41)
[2017-11-11] MEDS: DIGOXIN 125 MCG TABLET. PO (10:51)
[2017-11-11 10:52] LABS: MAGNESIUM 1.6 mg/dL (1.8-2.4)
[2017-11-11] MEDS: POTASSIUM CHLORIDE 20 MEQ TABLET.ER. PO (10:52)
[2017-11-11] MEDS: ASPIRIN CHEWABLE 81 MG TABLET. PO (10:52)
[2017-11-11] MEDS: METOPROLOL SUCC 24HR ER 25 MG TAB.ER.24H. PO ×2 (10:52→19:41)
[2017-11-11] MEDS: ANTI-COAG MONITOR BY PHARMACY. MC (10:53)
[2017-11-11] MEDS: MAGNESIUM SULFATE 2GM 50 ML IV (11:33)
[2017-11-11] MEDS ORDERED: ACETAMINOPHEN 325 MG TABLET. PO (15:15)
[2017-11-11] MEDS ORDERED: hydrALAZINE 20 MG/ML VIAL. IVP (15:15)
[2017-11-11] MEDS ORDERED: traMADol 50 MG TABLET PO (15:15)
[2017-11-11] MEDS ORDERED: DOCUSATE SODIUM 100 MG CAPSULE. PO (15:15)
[2017-11-11] MEDS: HYDROcodone/APAP 5/325MG 1 TAB TABLET PO (15:21)
[2017-11-11] MEDS: ONDANSETRON PF 4 MG/2 ML VIAL. IV (15:21)
[2017-11-11] MEDS: MORPHINE SULFATE 4 MG/ML DISP.SYRIN. IV (22:47)
[2017-11-11] MEDS: IPRATRPIUM/ALBUTEROL 0.5/2.5MG 3 ML NEBU. NEB (22:49)
[2017-11-12] MEDS: IPRATRPIUM/ALBUTEROL 0.5/2.5MG 3 ML NEBU. NEB (04:22)
[2017-11-12 05:05] LABS: ADD MAN DIFF? NO
[2017-11-12 05:31] LABS: BASO % 1 % (0-3); EOS % 1 % (0-3); HEMATOCRIT 39.1 % (39.0-53.0); HEMOGLOBIN 12.5 g/dL (13.0-17.5); LYMPH # 2.1 x10^3/uL (1.0-4.8); LYMPH % 38 % (24-48); MEAN CORPUSCULAR HEMOGLOBIN 29 pg (25-35); MEAN CORPUSCULAR HGB CONC 32 g/dL (31-37); MEAN CORPUSCULAR VOLUME 89 fL (79-100); MONO # 0.6 x10^3/uL (0.0-1.1); MONO % 11 % (0-9); NEUT # 2.8 x10^3uL (1.8-7.7); NEUT % 50 % (31-73); PLATELET COUNT 208 x10^3/uL (140-400); RED BLOOD COUNT 4.38 x10^6/uL (4.30-5.70); RED CELL DISTRIBUTION WIDTH 17.5 % (11.5-14.5); WHITE BLOOD COUNT 5.6 x10^3/uL (4.0-11.0)
[2017-11-12 05:43] LABS: ANION GAP 13 (6-14); BLOOD UREA NITROGEN 38 mg/dL (8-26); CALCIUM 9.1 mg/dL (8.5-10.1); CARBON DIOXIDE 25 mmol/L (21-32); CHLORIDE 100 mmol/L (98-107); CREATININE 2.2 mg/dL (0.7-1.3); GFR 40.5; GLUCOSE 135 mg/dL (70-99); POTASSIUM 4.4 mmol/L (3.5-5.1); SODIUM 138 mmol/L (136-145)
[2017-11-12] MEDS: APIXABAN 5 MG TABLET. PO ×2 (08:42→20:57)
[2017-11-12] MEDS: METOPROLOL SUCC 24HR ER 25 MG TAB.ER.24H. PO ×2 (08:42→20:58)
[2017-11-12] MEDS: ASPIRIN CHEWABLE 81 MG TABLET. PO (08:43)
[2017-11-12] MEDS: DIGOXIN 125 MCG TABLET. PO (08:43)
[2017-11-12] MEDS: HYDROcodone/APAP 5/325MG 1 TAB TABLET PO (08:44)
[2017-11-12] MEDS: FUROSEMIDE 40 MG/4 ML VIAL. IVP (08:44)
[2017-11-12] MEDS: ALPRAZolam 0.25 MG TABLET PO ×2 (10:49→20:59)
[2017-11-12 13:09] LABS: MAGNESIUM 2.1 mg/dL (1.8-2.4)
[2017-11-13] MEDS: ALBUTEROL SULFATE 2.5 MG/3 ML NEBU. NEB (03:01)
[2017-11-13 04:37] LABS: ADD MAN DIFF? NO
[2017-11-13 04:46] LABS: BASO % 1 % (0-3); EOS # 0.1 x10^3/uL (0.0-0.7); EOS % 2 % (0-3); HEMATOCRIT 34.7 % (39.0-53.0); HEMOGLOBIN 11.5 g/dL (13.0-17.5); LYMPH # 1.7 x10^3/uL (1.0-4.8); LYMPH % 32 % (24-48); MEAN CORPUSCULAR HEMOGLOBIN 29 pg (25-35); MEAN CORPUSCULAR HGB CONC 33 g/dL (31-37); MEAN CORPUSCULAR VOLUME 87 fL (79-100); MONO # 0.6 x10^3/uL (0.0-1.1); MONO % 12 % (0-9); NEUT # 2.9 x10^3uL (1.8-7.7); NEUT % 53 % (31-73); PLATELET COUNT 195 x10^3/uL (140-400); RED BLOOD COUNT 3.98 x10^6/uL (4.30-5.70); RED CELL DISTRIBUTION WIDTH 17.6 % (11.5-14.5); WHITE BLOOD COUNT 5.4 x10^3/uL (4.0-11.0)
[2017-11-13] MEDS: DIGOXIN 125 MCG TABLET. PO (08:57)
[2017-11-13] MEDS: ASPIRIN CHEWABLE 81 MG TABLET. PO (08:57)
[2017-11-13] MEDS: APIXABAN 5 MG TABLET. PO (08:57)
[2017-11-13] MEDS: METOPROLOL SUCC 24HR ER 25 MG TAB.ER.24H. PO ×2 (09:00→20:48)
[2017-11-13] MEDS: FUROSEMIDE 40 MG/4 ML VIAL. IVP (09:02)
[2017-11-13 10:03] LABS: ANION GAP 11 (6-14); BLOOD UREA NITROGEN 40 mg/dL (8-26); CALCIUM 8.9 mg/dL (8.5-10.1); CARBON DIOXIDE 26 mmol/L (21-32); CHLORIDE 97 mmol/L (98-107); CREATININE 1.7 mg/dL (0.7-1.3); GFR 54.6; GLUCOSE 89 mg/dL (70-99); POTASSIUM 3.9 mmol/L (3.5-5.1); SODIUM 134 mmol/L (136-145)
[2017-11-13] MEDS: FUROSEMIDE 20 MG/2 ML VIAL. IVP (16:45)
[2017-11-14] MEDS: ALPRAZolam 0.25 MG TABLET PO (02:06)
[2017-11-14] MEDS: DIGOXIN 125 MCG TABLET. PO (08:47)
[2017-11-14] MEDS: FUROSEMIDE 40 MG TABLET. PO (08:48)
[2017-11-14] MEDS: METOPROLOL SUCC 24HR ER 25 MG TAB.ER.24H. PO (08:48)
[2017-11-14] MEDS: ASPIRIN CHEWABLE 81 MG TABLET. PO (08:48)
[2017-11-14 09:20] LABS: ANION GAP 5 (6-14); BLOOD UREA NITROGEN 30 mg/dL (8-26); CALCIUM 8.7 mg/dL (8.5-10.1); CARBON DIOXIDE 33 mmol/L (21-32); CHLORIDE 100 mmol/L (98-107); CREATININE 1.4 mg/dL (0.7-1.3); GFR 68.3; GLUCOSE 76 mg/dL (70-99); MAGNESIUM 1.5 mg/dL (1.8-2.4); POTASSIUM 3.5 mmol/L (3.5-5.1); SODIUM 138 mmol/L (136-145)
[2017-11-14] MEDS: MAGNESIUM SULFATE 2GM 50 ML IV (12:14)
[2017-11-14] MEDS: POTASSIUM CHLORIDE 10 MEQ TABLET.ER. PO (12:15)
[2017-11-14] MEDS ORDERED: MAGNESIUM OXIDE 400 MG TABLET PO (17:00)
[2017-11-14] MEDS ORDERED: APIXABAN 5 MG TABLET. PO (21:00)
== END 2017-11-14 17:00 | disposition home or self-care (01) | DRG 291 ==
LOC: ER 14:40 → 2 SOUTH 17:03
DX: I13.0 Hypertensive heart and chronic kidney disease with heart failure and stage 1 through stage 4 chronic kidney disease, or unspecified chronic kidney disease (principal); N17.0 Acute kidney failure with tubular necrosis; I50.43 Acute on chronic combined systolic (congestive) and diastolic (congestive) heart failure; E44.1 Mild protein-calorie malnutrition; I42.9 Cardiomyopathy, unspecified; E83.42 Hypomagnesemia; F41.9 Anxiety disorder, unspecified; N18.3 Chronic kidney disease, stage 3 (moderate); N50.89 Other specified disorders of the male genital organs; I25.10 Atherosclerotic heart disease of native coronary artery without angina pectoris; F32.9 Major depressive disorder, single episode, unspecified; E87.6 Hypokalemia; G89.29 Other chronic pain; K58.9 Irritable bowel syndrome, unspecified; K82.8 Other specified diseases of gallbladder; Z95.5 Presence of coronary angioplasty implant and graft; Z83.3 Family history of diabetes mellitus; Z82.49 Family history of ischemic heart disease and other diseases of the circulatory system; Z95.810 Presence of automatic (implantable) cardiac defibrillator; Z68.21 Body mass index [BMI] 21.0-21.9, adult; Z86.73 Personal history of transient ischemic attack (TIA), and cerebral infarction without residual deficits; Z91.19 Patient's noncompliance with other medical treatment and regimen; Z79.01 Long term (current) use of anticoagulants; Z79.899 Other long term (current) drug therapy
CPT/HCPCS: 36415; 71045; 80048; 80053; 80162; 80307; 81001; 82553; 83690; 83735; 83880; 84484; 85025; 85610; 93005; 94618; 94640; 96374; 96375; 99285; 99285-25; J1940; J2270; J2405; J3475; J7613; J7620

== ENCOUNTER → 2021-01-03 | Outpatient (CLI) | payer OTHER ==
[2017-11-14 15:00] VITALS: BP 101/65
[~2021-01-03] MED LIST changes: +ALPR0.25 PO; +ASPI-630 PO; +DICY10CA3 PO; +DIGO125T3 PO; +FURO40TA4 PO; +MAGN400T22 PO; +METO-239 PO; +PARO20TA99 PO
--- NOTE | 2021-01-03 14:18 | RAD ---
EXAM: CHEST 2 VIEWS. HISTORY: Difficulty breathing. COMPARISON: None. FINDINGS: Frontal and lateral views of the chest are obtained. A right-sided pacer/defibrillator has its leads in the right atrium and right ventricle. There are no confluent infiltrates. The lungs are expanded to the 12th posterior ribs. There is no pn eumothorax or pleural effusion. The heart is not enlarged. IMPRESSION: 1. Hyperinflation. Correlate for deep respiratory effort or air-trapping. No confluent infiltrates. Electronically signed by: Lizeth Britton MD (01/03/2021 2:15 PM) [id number]
== END ==
LOC: RAD 13:46
PROVIDERS: ATTEND Surgery
DX: J98.11 Atelectasis (principal); Z02.71 Encounter for disability determination
CPT/HCPCS: 71046

== ENCOUNTER → 2021-02-14 | Outpatient (CLI) | payer OTHER ==
[2017-11-14 15:00] VITALS: BP 101/65
[~2021-02-14] MED LIST changes: -LISI2.5T PO; +LISI2.5T12 PO
== END ==
LOC: PF 07:48
PROVIDERS: ATTEND Family Medicine
DX: Z02.71 Encounter for disability determination (principal)
CPT/HCPCS: 94010